=== PATIENT | female | born 1980 | race Caucasian/White ===

== ENCOUNTER 2020-11-27 17:58 | Emergency (ER) | payer MEDICARE, MEDICAID, SELFPAY ==
[2020-11-27 18:00] VITALS: BP 129/87; PULSE 97; RESP 18; TEMP 36.7; O2SAT 96; BMI 32.0
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
[2020-11-27 20:00] VITALS: BP 129/87; PULSE 97; RESP 18; TEMP 36.7; O2SAT 96
[2020-11-27 20:00] LABS: MANUAL DIFF FLAG NO
[2020-11-27 20:17] LABS: Basophils Percent Auto 0.3 % (0-2); Eosinophils Absolute Auto 0.1 X10*3/uL (0.0-0.4); Eosinophils Percent Auto 1.3 % (0-4); Hematocrit 39.2 % (37-47); Hemoglobin 13.3 g/dl (12.0-16.0); Imm Gran Abs Auto 0.03 X10*3/uL (0.00-0.03); Imm Gran Pct Auto 0.3 % (0.0-0.4); Lymphocytes Absolute Auto 3.4 X10*3/uL (1.2-4.9); Mean Corpuscular HGB Conc 33.9 g/dl (31.0-35.0); Mean Corpuscular Hemoglobin 33.5 pg (27.0-33.0); Mean Corpuscular Volume 98.7 fL (80-98); Monocytes Absolute Auto 0.6 X10*3/uL (0.1-1.2); Monocytes Percent Auto 6.2 % (2-11); Neutrophils Percent Auto 58.9 % (45-73); Platelet Count 260 X10*3/uL (160-400); Red Blood Count 3.97 X10*6/uL (4.20-5.50); White Blood Count 10.2 X10*3/uL (4.8-10.8)
[2020-11-27 20:29] LABS: Alanine Aminotransferase 48 U/L (0-31); Albumin Level 3.9 g/dL (3.5-5.0); Alkaline Phosphatase 53 U/L (39-117); Amylase 84 U/L (28-100); Aspartate Amino Transferase 57 U/L (5-31); Bilirubin Direct 0.2 mg/dL (0.0-0.5); Bilirubin Total 0.5 mg/dL (0.0-1.0); Creatinine Clr Calc Pharmacy 112.2; Estimated Glomerular Filt Rate > 60; Total Protein 7.5 g/dL (6.5-8.0)
[2020-11-27 22:00] VITALS: BP 126/85; PULSE 96; RESP 15; O2SAT 97
[2020-11-27 22:11] LABS: Glucose Urine UA NEG (NEG); Leukocyte Esterase Urine TRACE (NEG); Nitrite Urine NEG (NEG); UACC Culture Trigger YES; Urine Blood 3+ (NEG); Urine Ketones 15 MG/DL (NEG); Urine Protein TRACE MG/DL (NEG-TRACE)
[2020-11-27 22:12] LABS: Appearance Urine CLEAR; Color Urine YELLOW
[2020-11-27 22:14] LABS: UPreg QC Valid YES; Urine Pregnancy NEGATIVE (NEGATIVE)
[2020-11-27 22:22] LABS: Bacteria Urine TRACE /LPF; Mucus Urine TRACE /LPF; RBC Urine 30-49 /HPF (0); Squamous Epithelial Cell Urine 2+ /LPF
--- NOTE | 2020-11-27 22:22 | PC.NURSE ---
Patient refused to have the internal exam. There were no area of trauma or bruising. Patient urine sent for urinalysis. Per HEAD MILLER patient has a probable yeast infection and possible uti
[2020-11-27] MEDS: Fluconazole 150 MG TABLET PO (22:49)
[2020-11-27] MEDS: levoFLOXacin 500 MG TABLET PO (22:49)
[2020-11-28 03:21] LABS: HBS Num1 0.07 mIU/mL (0-7.99); ~Hepatitis B Surface Antibody NONREACTIVE (Nonreactive)
[2020-11-28 03:30] LABS: HIV AB/AG Nonreactive (Nonreactive); HIV Num 1 0.16 S/CO (0.00-0.99); ~HepC Num1 0.18 S/CO (0.00-0.79); ~Hepatitis C Antibody Nonreactive (Nonreactive)
[2020-11-28 03:34] LABS: HBc Num1 0.09 S/CO (0.00-0.79); HBsAGNum1 0.15 S/CO (0.00-0.99); Hepatitis B Core Antibody Nonreactive (Nonreactive); Hepatitis B Surface Antigen Negative (Negative)
[2020-11-28 04:50] LABS: CT PCR NOT DETECTED (Not Detect.); NG PCR NOT DETECTED (Not Detect.)
== END 2020-11-27 22:44 | disposition home or self-care (01) ==
PROVIDERS: Nurse Practitioner Family; Emergency Provider Internal Medicine; PCP Internal Medicine
DX: T76.21XA Adult sexual abuse, suspected, initial encounter (principal); B37.49 Other urogenital candidiasis; N30.01 Acute cystitis with hematuria
CPT/HCPCS: 36415; 80076; 81001; 81003; 81025; 82150; 82565; 85025; 86704; 86706; 86803; 87086; 87147; 87340; 87389; 87491; 87591; 99284; 99285

== ENCOUNTER 2020-12-30 18:45 | Emergency (ER) | payer MEDICARE, MEDICAID, SELFPAY ==
--- NOTE | ~2020-12-30 | XR_ITS ---
EXAMINATION: XR ANKLE, RIGHT XR ANKLE, LEFT XR FOOT, RIGHT XR FOOT, LEFT CLINICAL INFORMATION: Pain and swelling COMPARISON: None TECHNIQUE: 2 views of each ankle. 3 views of each foot. FINDINGS: Right foot/ankle: There is a screw within the first digit fusing the proximal and distal phalanges. There is solid bony fusion. Flexion of the second through fifth digits limits evaluation. Joint space narrowing throughout the metatarsophalangeal joints. Osteopenia. No acute fracture or malalignment. No ankle joint effusion. Small plantar heel spur. The ankle mortise is congruent. Circumferential soft tissue swelling which is greatest at the ankle laterally. Left foot/ankle: There is a radiopaque screw in the first digit transfixing the proximal and distal phalanges with solid bony fusion across the interphalangeal joint. Hallux valgus. Flexion of the second through fifth digits limits evaluation. No acute fractures seen. No dislocation. Joint space narrowing throughout the metatarsophalangeal joints. Osteopenia. Small plantar heel spur. No ankle joint effusion. Circumferential soft tissue swelling at the ankle, greatest laterally. The ankle mortise is congruent. XR/XR foot RT 2V IMPRESSION: No acute abnormality of either ankle or foot. Prominent soft tissue swelling, greatest at the lateral ankles. Significant osteopenia.
--- NOTE | ~2020-12-30 | XR_ITS ---
EXAMINATION: XR ANKLE, RIGHT XR ANKLE, LEFT XR FOOT, RIGHT XR FOOT, LEFT CLINICAL INFORMATION: Pain and swelling COMPARISON: None TECHNIQUE: 2 views of each ankle. 3 views of each foot. FINDINGS: Right foot/ankle: There is a screw within the first digit fusing the proximal and distal phalanges. There is solid bony fusion. Flexion of the second through fifth digits limits evaluation. Joint space narrowing throughout the metatarsophalangeal joints. Osteopenia. No acute fracture or malalignment. No ankle joint effusion. Small plantar heel spur. The ankle mortise is congruent. Circumferential soft tissue swelling which is greatest at the ankle laterally. Left foot/ankle: There is a radiopaque screw in the first digit transfixing the proximal and distal phalanges with solid bony fusion across the interphalangeal joint. Hallux valgus. Flexion of the second through fifth digits limits evaluation. No acute fractures seen. No dislocation. Joint space narrowing throughout the metatarsophalangeal joints. Osteopenia. Small plantar heel spur. No ankle joint effusion. Circumferential soft tissue swelling at the ankle, greatest laterally. The ankle mortise is congruent. XR/XR ankle LT min 3V IMPRESSION: No acute abnormality of either ankle or foot. Prominent soft tissue swelling, greatest at the lateral ankles. Significant osteopenia.
--- NOTE | ~2020-12-30 | XR_ITS ---
EXAMINATION: XR ANKLE, RIGHT XR ANKLE, LEFT XR FOOT, RIGHT XR FOOT, LEFT CLINICAL INFORMATION: Pain and swelling COMPARISON: None TECHNIQUE: 2 views of each ankle. 3 views of each foot. FINDINGS: Right foot/ankle: There is a screw within the first digit fusing the proximal and distal phalanges. There is solid bony fusion. Flexion of the second through fifth digits limits evaluation. Joint space narrowing throughout the metatarsophalangeal joints. Osteopenia. No acute fracture or malalignment. No ankle joint effusion. Small plantar heel spur. The ankle mortise is congruent. Circumferential soft tissue swelling which is greatest at the ankle laterally. Left foot/ankle: There is a radiopaque screw in the first digit transfixing the proximal and distal phalanges with solid bony fusion across the interphalangeal joint. Hallux valgus. Flexion of the second through fifth digits limits evaluation. No acute fractures seen. No dislocation. Joint space narrowing throughout the metatarsophalangeal joints. Osteopenia. Small plantar heel spur. No ankle joint effusion. Circumferential soft tissue swelling at the ankle, greatest laterally. The ankle mortise is congruent. XR/XR ankle RT min 3V IMPRESSION: No acute abnormality of either ankle or foot. Prominent soft tissue swelling, greatest at the lateral ankles. Significant osteopenia.
--- NOTE | ~2020-12-30 | XR_ITS ---
EXAMINATION: XR ANKLE, RIGHT XR ANKLE, LEFT XR FOOT, RIGHT XR FOOT, LEFT CLINICAL INFORMATION: Pain and swelling COMPARISON: None TECHNIQUE: 2 views of each ankle. 3 views of each foot. FINDINGS: Right foot/ankle: There is a screw within the first digit fusing the proximal and distal phalanges. There is solid bony fusion. Flexion of the second through fifth digits limits evaluation. Joint space narrowing throughout the metatarsophalangeal joints. Osteopenia. No acute fracture or malalignment. No ankle joint effusion. Small plantar heel spur. The ankle mortise is congruent. Circumferential soft tissue swelling which is greatest at the ankle laterally. Left foot/ankle: There is a radiopaque screw in the first digit transfixing the proximal and distal phalanges with solid bony fusion across the interphalangeal joint. Hallux valgus. Flexion of the second through fifth digits limits evaluation. No acute fractures seen. No dislocation. Joint space narrowing throughout the metatarsophalangeal joints. Osteopenia. Small plantar heel spur. No ankle joint effusion. Circumferential soft tissue swelling at the ankle, greatest laterally. The ankle mortise is congruent. XR/XR foot LT 2V IMPRESSION: No acute abnormality of either ankle or foot. Prominent soft tissue swelling, greatest at the lateral ankles. Significant osteopenia.
[2020-12-30 19:58] VITALS: BP 139/88; PULSE 93; RESP 18; TEMP 37; O2SAT 97; BMI 31.5
[2020-12-30 22:09] VITALS: BP 151/91; PULSE 90; O2SAT 100
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
[2020-12-30] MEDS: Acetaminophen 325 MG TABLET 975 MG PO (23:18)
== END 2020-12-31 00:53 | disposition other institution (70) ==
PROVIDERS: Emergency Provider Student in an Organized Health Care Education/Training Program
DX: M79.672 Pain in left foot (principal); M79.671 Pain in right foot
CPT/HCPCS: 73610; 73620; 99283; 99284

== ENCOUNTER 2021-02-07 09:22 | Outpatient (REF) | payer MEDICARE, MEDICAID, SELFPAY ==
[2021-02-07 10:09] LABS: MANUAL DIFF FLAG NO
[2021-02-07 10:41] LABS: Basophils Percent Auto 0.3 % (0-2); Eosinophils Absolute Auto 0.2 X10*3/uL (0.0-0.4); Eosinophils Percent Auto 1.5 % (0-4); Hematocrit 43.5 % (37-47); Hemoglobin 14.1 g/dl (12.0-16.0); Imm Gran Abs Auto 0.03 X10*3/uL (0.00-0.03); Imm Gran Pct Auto 0.3 % (0.0-0.4); Lymphocytes Absolute Auto 2.3 X10*3/uL (1.2-4.9); Lymphocytes Percent Auto 23.8 % (20-40); Mean Corpuscular HGB Conc 32.4 g/dl (31.0-35.0); Mean Corpuscular Hemoglobin 32.2 pg (27.0-33.0); Mean Corpuscular Volume 99.3 fL (80-98); Mean Platelet Volume 9.3 fL (9.4-12.3); Monocytes Absolute Auto 0.5 X10*3/uL (0.1-1.2); Neutrophils Absolute Auto 6.7 X10*3/uL (2.0-8.3); Neutrophils Percent Auto 69.1 % (45-73); Platelet Count 352 X10*3/uL (160-400); Red Blood Count 4.38 X10*6/uL (4.20-5.50); Red Cell Distribution Width 11.8 % (11.0-16.0); White Blood Count 9.7 X10*3/uL (4.8-10.8)
[2021-02-07 10:42] LABS: Valproate 32.5 mcg/mL (50.0-100.0)
[2021-02-07 10:44] LABS: Alanine Aminotransferase 36 U/L (0-31); Albumin Level 4.2 g/dL (3.5-5.0); Alkaline Phosphatase 59 U/L (39-117); Anion Gap 13 (12-20); Aspartate Amino Transferase 42 U/L (5-31); Bilirubin Total 0.4 mg/dL (0.0-1.0); Blood Urea Nitrogen 16 mg/dL (9-16); Calcium 9.3 mg/dL (8.4-10.2); Carbon Dioxide 26 mmol/L (22-29); Chloride 105 mmol/L (96-108); Estimated Glomerular Filt Rate > 60; Glucose Random 89 mg/dL (60-115); Potassium 4.2 mmol/L (3.3-5.1); Sodium 140 mmol/L (135-145); Total Protein 8.1 g/dL (6.5-8.0)
== END 2021-02-07 09:23 | disposition home or self-care (01) ==
LOC: HO.LAB 09:22
PROVIDERS: Visit Provider Clinical Nurse Specialist Psychiatric/Mental Health, Adult
DX: F34.81 Disruptive mood dysregulation disorder (principal)
CPT/HCPCS: 36415; 80053; 80164; 85025

== ENCOUNTER 2021-06-10 10:56 | Outpatient (REF) | payer MEDICARE, MEDICAID, SELFPAY ==
[2021-06-10 11:21] LABS: MANUAL DIFF FLAG NO
[2021-06-10 11:39] LABS: Basophils Percent Auto 0.3 % (0-2); Eosinophils Absolute Auto 0.1 X10*3/uL (0.0-0.4); Eosinophils Percent Auto 1.1 % (0-4); Hematocrit 39.4 % (37.0-47.0); Hemoglobin 13.3 g/dl (12.0-16.0); Imm Gran Abs Auto 0.02 X10*3/uL (0.00-0.03); Imm Gran Pct Auto 0.3 % (0.0-0.4); Mean Corpuscular HGB Conc 33.8 g/dl (31.0-35.0); Mean Corpuscular Hemoglobin 32.5 pg (27.0-33.0); Mean Corpuscular Volume 96.3 fL (80.0-98.0); Mean Platelet Volume 8.5 fL (9.4-12.3); Monocytes Absolute Auto 0.5 X10*3/uL (0.1-1.2); Monocytes Percent Auto 6.4 % (2-11); Neut%MD 65.9 %; Neutrophils Absolute Auto 5.2 x10*3/uL (2.0-8.3); Neutrophils Percent Auto 65.9 % (45-73); Platelet Count 296 X10*3/uL (160-400); Red Blood Count 4.09 X10*6/uL (4.20-5.50); Red Cell Distribution Width 11.7 % (11.0-16.0); WBCANC 7.9 X10*3/uL; White Blood Count 7.9 X10*3/uL (4.8-10.8)
[2021-06-10 12:04] LABS: Anion Gap 13 (12-20); Blood Urea Nitrogen 16 mg/dL (9-16); Calcium 9.7 mg/dL (8.4-10.2); Carbon Dioxide 26 mmol/L (22-29); Chloride 104 mmol/L (96-108); Estimated Glomerular Filt Rate > 60; Glucose Random 79 mg/dL (60-115); Potassium 4.5 mmol/L (3.3-5.1); Sodium 138 mmol/L (135-145)
[2021-06-10 12:31] LABS: Valproate < 2.0 mcg/mL (50.0-100.0)
== END 2021-06-10 10:57 | disposition home or self-care (01) ==
LOC: HO.LAB 10:56
PROVIDERS: Visit Provider Clinical Nurse Specialist Psychiatric/Mental Health, Adult
DX: F34.81 Disruptive mood dysregulation disorder (principal); Z79.899 Other long term (current) drug therapy
CPT/HCPCS: 36415; 80048; 80164; 85025

== ENCOUNTER 2021-07-26 21:18 | Emergency (ER) | payer MEDICARE, MEDICAID, SELFPAY ==
[2021-07-26 22:06] VITALS: BP 154/94; PULSE 95; RESP 16; TEMP 37.4; O2SAT 97; BMI 31.5
--- NOTE | 2021-07-26 23:07 | ECG_ITS ---
Test Reason : MEDICATION ERROR Blood Pressure : / mmHG Vent. Rate : 100 BPM Atrial Rate : 100 BPM P-R Int : 176 ms QRS Dur : 066 ms QT Int : 326 ms P-R-T Axes : 028 012 015 degrees QTc Int : 420 ms Normal sinus rhythm Normal ECG No previous ECGs available Referred By: Bhavya Knapp Electronically Signed By:FEI PANDA
--- NOTE | 2021-07-27 01:36 | ED.GENADULT ---
HPI - General Adult General Chief complaint: General Medical Stated complaint: Took someone elses meds @ 830pm Time Seen by Provider: 07/26/21 23:07 Source: patient and other (correction staff) Mode of arrival: ambulatory Limitations: no limitations History of Present Illness HPI narrative: 7 hours ago, patient was given accidentally the wrong medication. Patient ingested atorvastatin, Lamictal, Prozac. Patient is on most of this medications except Lamictal. Patient has not had any symptoms. Patient has been feeling well. Patient denies abdominal pain, nausea or vomiting, no rash, no allergic reaction. Patient feels at baseline, according to the skilled nursing staff, patient is at baseline Related Data Home Medications Medication Instructions Recorded Confirmed aripiprazole 30 mg tablet 30 mg PO BEDTIME 08/20/20 atorvastatin 20 mg tablet 20 mg PO DAILY 08/20/20 clonazepam 1 mg tablet 1 mg PO BID PRN 08/20/20 divalproex 250 mg tablet,extended 250 mg PO DAILY 08/20/20 release 24 hr divalproex 500 mg tablet,extended 500 mg PO DAILY 08/20/20 release 24 hr fluoxetine 20 mg capsule 60 mg PO QAM 08/20/20 ketoconazole 2 % shampoo 1 appl TOPICAL 2XW 08/20/20 levonorgestrel 0.15 mg-ethinyl PO 08/20/20 estradiol 30 mcg tablets,3 mos pack(91) methenamine hippurate 1 gram tablet 1 g PO BID 08/20/20 metronidazole 0.75 % topical cream 1 appl TOPICAL BID 08/20/20 nystatin 100,000 unit/gram topical TOPICAL 08/20/20 powder trazodone 50 mg tablet 50 mg PO BEDTIME 08/20/20 triamcinolone acetonide 0.1 % appl TOPICAL BID 08/20/20 topical cream Previous Rx's Medication Instructions Recorded ibuprofen 600 mg tablet 600 mg PO Q8H PRN #20 tab 08/20/20 fluconazole 150 mg tablet 150 mg PO ONCE #1 tab 11/27/20 (Diflucan) levofloxacin 500 mg tablet 500 mg PO DAILY #6 tab 11/27/20 Allergies Allergy/AdvReac Type Severity Reaction Status Date / Time No Known Allergies Allergy Verified 12/30/20 19:57 [No Known Allergies*] Review of Systems Review of Systems: Constitutional : No Weight loss, No Fever, No Chills, No Night Sweats, No Fatigue, No Malaise ENT/Mouth : No Hearing loss, No Ear Pain, No Nasal Congestion, No Sinus Pain, No Hoarseness, No sore throat, No Rhinorrhea, No Swallowing Difficulty Eyes: No Eye Pain, No Swelling, No Redness, No Foreign Body, No Discharge, No Vision Changes Cardiovascular : No Chest Pain, No SOB, No Dyspnea on Exertion, No Orthopnea, No Edema, No Palpitations Respiratory : No Cough, No Sputum, No Wheezing, No Smoke Exposure, No Dyspnea Gastrointestinal : No Nausea, No Vomiting, No Diarrhea, No Constipation, No abdominal Pain, No Hematochezia, No Melena Genitourinary : no irregular bleeding, No Dysuria, No Urinary Frequency, No Hematuria, No Urinary Incontinence, No Urgency, No Flank Pain, No Urinary Flow Changes, No Hesitancy Musculoskeletal : No joint pain, No Myalgias, No Joint Swelling Skin : No Skin Lesions, No rash Neuro : No Weakness, No Numbness, No Paresthesias, No Loss of Consciousness, No Dizziness, No Headache Psych : No Anxiety/Panic, No Depression, No SI/HI/AH/VH, No Social Issues, Heme/Lymph: No Bruising, No Bleeding,No Lymphadenopathy Endocrine : No Polyuria, No Polydipsia, No Temperature Intolerance PMFSH Past Medical History Medical History Anxiety Depression Hyperlipidemia Psoriasis Seizure Social History Social History Alcohol intake: never Patient Tobacco Use Status: Never used Tobacco Advance Directives: No Advance Directives Information Provided: Yes Physical Exam ED Vital Signs: Vital Signs - 24 hr 07/26/21 22:06 Temperature 99.4 F Pulse Rate 95 Respiratory Rate 16 Blood Pressure 154/94 H Pulse Oximetry 97 BMI result Body Mass Index 31.5 Const Other: Appearance: Alert. Oriented X3. No acute distress. Eyes: Pupils equal, round and reactive to light. ENT: Pharynx normal. Neck: Normal inspection. Neck supple. No lymph nodes noted. No crepitus CVS: Normal heart rate and rhythm. Pulses normal. Normal S1 and S2 Respiratory: No respiratory distress. Breath sounds normal. No Wheezing. No rales Abdomen: Soft and nontender. No rigidity. No distention. Skin: Skin warm and dry. Normal skin color. Normal skin turgor. Extremities: No lower extremity edema. No Lacerations. No Rash Neuro: Oriented X 3. No motor deficit. No sensory deficit. Moving all extremities. No slurred speech. CN 2 through 12 grossly intact Psych: calm, cooperative, normal affect Course Course Course Narrative: I discussed with the patient and the skilled nursing staff, that at this time, no further intervention is needed, patient ingested the medication over 7 hours ago and patient is asymptomatic. PE within normal limits, no acute findings. Patient will be discharged home Medical Decision Making ECG Data Attestation: I personally reviewed and interpreted this ECG as follows: (Senna rhythm, heart rate 100, and a segment depression elevation, no T-wave inversion, QTC 420) Discharge Plan Discharge Clinical Impression: Accidental drug ingestion Patient Disposition: Home, Self-Care Instructions: Medication Safety for Older Adults (ED) Additional Instructions: Please follow-up with your primary care physician tomorrow. If you have any worsening or new symptoms, please return to the emergency room or call 911 Prescriptions: No Action levofloxacin 500 mg tablet 500 mg PO DAILY Qty: 6 0RF fluconazole [Diflucan] 150 mg tablet 150 mg PO ONCE Qty: 1 0RF Rx Instructions: Give 1 tablet on 11/30/2020. Then discontinue this medication divalproex 250 mg tablet extended release 24 hr 250 mg PO DAILY 0RF aripiprazole 30 mg tablet 30 mg PO BEDTIME 0RF fluoxetine 20 mg capsule 60 mg PO QAM 0RF divalproex 500 mg tablet extended release 24 hr 500 mg PO DAILY 0RF methenamine hippurate 1 gram tablet 1 g PO BID 0RF clonazepam 1 mg tablet 1 mg PO BID PRN0RF trazodone 50 mg tablet 50 mg PO BEDTIME 0RF atorvastatin 20 mg tablet 20 mg PO DAILY 0RF triamcinolone acetonide 0.1 % cream topical BID 0RF levonorgestrel-ethinyl estrad 0.15 mg-30 mcg (91) tablets,dose pack,3 month PO 0RF metronidazole 0.75 % cream 1 appl topical BID 0RF ketoconazole 2 % shampoo 1 appl topical 2XW 0RF nystatin 100,000 unit/gram powder topical 0RF ibuprofen 600 mg tablet 600 mg PO Q8H PRN (Reason: pain) Qty: 20 0RF
== END 2021-07-27 01:51 | disposition home or self-care (01) ==
PROVIDERS: Emergency Provider Emergency Medicine
DX: T50.911A Poisoning by multiple unspecified drugs, medicaments and biological substances, accidental (unintentional), initial encounter (principal); T42.6X5A Adverse effect of other antiepileptic and sedative-hypnotic drugs, initial encounter; Y92.9 Unspecified place or not applicable; Z79.899 Other long term (current) drug therapy
CPT/HCPCS: 93005; 99283

== ENCOUNTER 2021-11-03 16:55 | Emergency (ER) | payer MEDICARE, MEDICAID, SELFPAY ==
--- NOTE | ~2021-11-03 | CT_ITS ---
EXAMINATION: CT HEAD WITHOUT CONTRAST CLINICAL INFORMATION: Subacute changes and aggression. COMPARISON: None TECHNIQUE: Contiguous axial imaging was performed from the skull base to vertex without intravenous administration of contrast. This CT examination was performed using dose optimization techniques as appropriate, variously including the following: *Automated exposure control *Adjustment of mA and/or kV according to patient size (this includes techniques or standardized protocols for targeted exams where dose is matched to indication/reason for exam; i.e. extremities or head) *Use of iterative reconstruction technique DLP: 581 mGy-cm FINDINGS: There is no evidence of acute intracranial hemorrhage or territorial infarction. No abnormal mass effect or midline shift is seen. Koroma to white matter differentiation is well preserved. No extra-axial fluid collections are identified. The frontal horns of lateral ventricles are normal size. There is a enlarged ELINA and the atrium of lateral ventricle. 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 There is no abnormal attenuation within the brain parenchyma. The osseous structures and soft tissues are normal. The mastoid air cells and visualized portions of the paranasal sinuses are well aerated. CT/CT head/brain wo con IMPRESSION: No acute intracranial process seen. 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
[2021-11-03 17:29] VITALS: BP 124/80; BP 92/67; PULSE 76; PULSE 81; RESP 18; TEMP 36.4; O2SAT 100; O2SAT 98; BMI 30.2
--- NOTE | 2021-11-03 17:42 | PC.NURSE ---
PATIENT REFUSED TO BE BAR STEWARD INTO HOSPITAL ATTIRE ,RN AWARE .
--- NOTE | 2021-11-03 19:33 | ED_ITS ---
HPI - General Adult General Chief complaint: General Medical Stated complaint: Section 12 Time Seen by Provider: 11/03/21 17:09 Source: patient and EMS Mode of arrival: EMS History of Present Illness HPI narrative: 41-year-old female brought in by EMS from her care facility due to reports of increased aggression and at that time was Section 12 and brought in by EMS. Patient is otherwise calm and cooperative denies any suicidal ideation and denies wanting to hurt anyone and instead states that the staff was threatening me . Patient states that she has significant toe pain. Related Data Home Medications Medication Instructions Recorded Confirmed aripiprazole 20 mg tablet 1 tab PO QAM 11/03/21 11/03/21 clonazepam 0.5 mg tablet 1 tab PO BID PRN Anxiety 11/03/21 11/03/21 divalproex 500 mg tablet,extended 2 tab PO BEDTIME 11/03/21 11/03/21 release 24 hr fluoxetine 20 mg capsule 3 cap PO QAM 11/03/21 11/03/21 propranolol 20 mg tablet 1 tab PO BID 11/03/21 11/03/21 risperidone 1 mg tablet (Risperdal) 1 tab PO BID 11/03/21 11/03/21 trazodone 100 mg tablet 1 tab PO BEDTIME 11/03/21 11/03/21 Previous Rx's Medication Instructions Recorded cephalexin 500 mg capsule 500 mg PO Q12H 3 days #6 caps 11/03/21 Allergies Allergy/AdvReac Type Severity Reaction Status Date / Time No Known Allergies Allergy Verified 12/30/20 19:57 [No Known Allergies*] Review of Systems Review of Systems: Pertinent positives and negatives as stated in HPI 10 point review of systems is otherwise negative. [facility] Past Medical History Source: nursing notes reviewed Medical History Anxiety Depression Hyperlipidemia Psoriasis Seizure Social History Social History Alcohol intake: never Patient Tobacco Use Status: Never used Tobacco Advance Directives: No Advance Directives Information Provided: No Physical Exam ED Vital Signs: Vital Signs - 24 hr 11/03/21 17:29 Temperature 97.5 F Pulse Rate 76 Respiratory Rate 18 Blood Pressure 92/67 Pulse Oximetry 100 Oxygen Delivery Method Room Air BMI result Body Mass Index 30.2 VITAL SIGNS: Reviewed. GENERAL: Well developed, well nourished, in no acute distress. HEAD: Normocephalic/atraumatic EYES: PERRLA, EOMI EARS: Ext canals without abnormality OROPHARYNX: no oral lesions noted, posterior pharynx clear LUNGS: Normal breath sounds. No adventitious sounds or accessory muscle use. SpO2<100> CARDIOVASCULAR: Regular rate and rhythm without noted murmurs ABDOMEN: Soft, non-tender, non-distended with bowel sounds. MUSCULOSKELETAL: No tenderness, deformities, or effusions noted on gross inspection. EXTREMITIES: No cyanosis, clubbing or mc; obvious corn with surrounding erythema noted to the malformed toe on the left foot. SKIN: Inspection of the skin reveals no rashes NEUROLOGIC: Alert and oriented x 3. Strength and sensation to light touch were grossly intact x 4, cranial nerves 2-12 are grossly intact. Course Course Course Narrative: 41-year-old female with history and clinical presentation inconsistent with suicidal or homicidal ideation instead complaints significantly regarding the toe on her left foot which is somewhat malformed in clearly rubs on shoes with covered toes. Patient will be screened for corroboration by the care team and otherwise can be discharged home in stable condition with a short course of antibiotics, soaks in warm water and restricted to open toe/ flip flops that do not rub the top of patient's toes. 2005: I spoke with Serenity, from the care team, who obtained collateral information and patient is had some pretty significant behavioral changes over the past month, Aggression, has been noted to be defecating on herself and it is unclear the reason for this. Patient will be held at this time and further evaluated by the behavioral team. Reevaluation(s) Reevaluation #1: Patient placed in physician observation because the patient needed more time for lab work and behavioral evaluation. At the time observation was started the patient's vital signs were stable, patient is alert and oriented, neuro: Nonfocal, CV RRR, lungs clear Time: 20:34 Discharge Plan Discharge Clinical Impression: Mcgregor or callus, Aggressive behavior Patient Disposition: Still a Patient Prescriptions: New cephalexin 500 mg capsule 500 mg PO Q12H 3 Days Qty: 6 0RF No Action clonazepam 0.5 mg tablet 1 tab PO BID PRN (Reason: Anxiety) trazodone 100 mg tablet 1 tab PO BEDTIME divalproex 500 mg tablet extended release 24 hr 2 tab PO BEDTIME propranolol 20 mg tablet 1 tab PO BID fluoxetine 20 mg capsule 3 cap PO QAM risperidone [Risperdal] 1 mg tablet 1 tab PO BID aripiprazole 20 mg tablet 1 tab PO QAM
[2021-11-03] MEDS: cephALEXin 500 MG CAPSULE PO (19:48)
[2021-11-03] MEDS: Acetaminophen 325 MG TABLET 975 MG PO (19:48)
--- NOTE | 2021-11-03 20:07 | MHC.CARE ---
RISK ASSESSMENT: CARE team consult received for 41 year old female with significant developmental disability who was transported via ambulance from her [facility] retirement for increased agitation and aggression toward staff and other residents in the program. Pt refused to change into hospital attire once she arrived to the emergency department but has otherwise been calm and cooperative. This property underwriter communicated with the pt's ict programmer Mya Herrera ([phone]) who shared that the pt is a [facility] resident of the program and had minimal behavioral problems prior to February 2021 when the pt began to escalate while at her day program and engaging in head banging and threatening staff and other participants. The pt was discharged from the day program and after several days of being home during the day these behaviors surfaced in that environment as well. She has been increasingly verbally and physically aggressive and threatening toward staff and her peers in the retirement, yelling obscenities for hours on end, defacating herself and telling staff to clean up her shit, and has needed to be transported to the emergency department at [facility] several times due to her level of dysregulation and unsafe behavior. Mya shared that the pt's family expressed their concerns after several instances where they have heard her on the phone during one of these episodes, which have been occurring on a daily basis for the past week or so. Pt's sister questioned whether it could be early onset of menopause, as their mother experienced early menopause and was similarly agitated and dysregulated during this period of time. Mya reported that one of the responding [place] police officers recommended sending the pt to [facility] instead of [facility] in hopes that a more detailed and thorough evaluation may occur, feeling that [facility] may not be seeing the whole picture with regards to the pt's behaviors and being a risk for harm to others. Recommendation is for a full crisis evaluation. Pt will be referred to [facility]. ED physician and nurse aware of the plan of care.
--- NOTE | 2021-11-03 20:14 | PC.NURSE ---
No report on patient's ambulation status available. [facility] called @ [phone]/spoke with Mya who reported that patient can ambulates independently without using assisted device, patient is delayed but coherent, compliant with exchange specialist process at this time, will continue to monitor.
--- NOTE | 2021-11-03 20:45 | PC.NURSE ---
[facility] referral completed for increased aggression, confirmed, pending ETA, halfway director called again and left voice mail to have fax medication list or MAR, patient is currently in room watching TV, will continue to monitor.
[2021-11-03 21:17] LABS: COVID-19 Test Negative (Negative)
[2021-11-03 21:25] LABS: Basophils Percent Auto 0.6 % (0-2); Eosinophils Absolute Auto 0.1 X10*3/uL (0.0-0.4); Eosinophils Percent Auto 2.2 % (0-4); Hematocrit 38.6 % (37.0-47.0); Hemoglobin 13.3 g/dl (12.0-16.0); Imm Gran Abs Auto 0.08 X10*3/uL (0.00-0.03); Imm Gran Pct Auto 1.3 % (0.0-0.4); Lymphocytes Absolute Auto 2.1 X10*3/uL (1.2-4.9); Lymphocytes Percent Auto 33.3 % (20-40); MANUAL DIFF FLAG SCAN; Mean Corpuscular HGB Conc 34.5 g/dl (31.0-35.0); Mean Corpuscular Hemoglobin 33.1 pg (27.0-33.0); Mean Platelet Volume 9.6 fL (9.4-12.3); Monocytes Absolute Auto 0.5 X10*3/uL (0.1-1.2); Monocytes Percent Auto 7.4 % (2-11); Neutrophils Absolute Auto 3.5 x10*3/uL (2.0-8.3); Neutrophils Percent Auto 55.2 % (45-73); PLT CLUMP 1; Red Blood Count 4.02 X10*6/uL (4.20-5.50); Red Cell Distribution Width 12.5 % (11.0-16.0); SCAN SMEAR FLAG 1
[2021-11-03 21:26] LABS: White Blood Count 6.3 X10*3/uL (4.8-10.8)
--- NOTE | 2021-11-03 21:36 | PC.NURSE ---
I INFORM MD WASHINGTON THAT PATIENT REFUSED WELL DRILLER , STATED PATIENT DOES NOT HAVE TO BE WELL DRILLER SINCE PATIENT WAS NOT SI OR HI, PATIENT WAS GIVEN DINNER BY THIS PCT ,PCT LUIS WAS SITTING AT PATIENT BEDSIDE .
[2021-11-03 21:39] LABS: Alanine Aminotransferase 25 U/L (0-31); Albumin Level 3.8 g/dL (3.5-5.0); Alkaline Phosphatase 63 U/L (39-117); Anion Gap 13 (12-20); Aspartate Amino Transferase 42 U/L (5-31); Bilirubin Total 0.4 mg/dL (0.0-1.0); Blood Urea Nitrogen 18 mg/dL (9-16); Calcium 8.6 mg/dL (8.4-10.2); Carbon Dioxide 21 mmol/L (22-29); Chloride 108 mmol/L (96-108); Creatinine Clr Calc Pharmacy 91.3; Estimated Glomerular Filt Rate > 60; Glucose Random 150 mg/dL (60-115); Potassium 4.4 mmol/L (3.3-5.1); Sodium 138 mmol/L (135-145); Total Protein 7.4 g/dL (6.5-8.0)
[2021-11-03 21:43] LABS: Valproate 50.2 mcg/mL (50.0-100.0)
[2021-11-03 21:50] LABS: SLIDE REVIEW VERIFIED
[2021-11-04 01:27] VITALS: BP 116/72; PULSE 80; RESP 16; TEMP 36.8; O2SAT 99
--- NOTE | 2021-11-04 06:26 | PC.NURSE ---
Patient slept through the night, no distress observed/reported, patient had one episode of bladder incontinence, incontinence care provided, well engaged with [facility] clinician during evaluation, disposition is section 12 inpatient bed search, patient gait slow but steady, VSS, will continue to monitor.
--- NOTE | 2021-11-04 08:47 | MHC.MBSS ---
pt received in bed, sleeping. no concerning behaviors. will continue to monitor
--- NOTE | 2021-11-04 10:34 | PC.NURSE ---
pt awake and walking to BR with accompaniment. AM care made available. Disposition pending. Will continue to monitor.
--- NOTE | 2021-11-04 10:41 | MHC.CARE ---
Spoke to patient in [facility] this morning to discuss discharge plan, she understands that her prescriptions are ready at the pharmacy. Patient stated that she has been struggling to contact her new psychiatrist and is upset that he did not prescribe extended release Adderall which she has taken for about 20 years. She explained that the sharpe of medication makes her anxious and has to repeat this with each dose. Unfortunately this is not something that can be addressed in the ED, which she understood. A phone and # for her provider, she did reach out. Patient calling her mother for a ride. ED provider updated
--- NOTE | 2021-11-04 11:00 | P.CNPS_ITS ---
History of Present Illness Date of Service: 11/04/2021 Chief Complaint: Section 12 Reason for Consult: increase aggression Requesting physician: Sangita Mendiola Discussed with referring provider: Yes Sources of Information: patient interviewed, chart reviewed and crisis/core team assessment reviewed HPI Narrative: Ms. Puentes is a 41 year-old woman with hx of cerebral palsy, intellectual disability, explosive behaviors who resides at [facility]. She was brought via EMS from senior living due to increase aggression towards peers and staff at the senior living. Per [facility] records, pt was admitted to inpatient psych unit in 07/2021 and 09/2021. Utox was negative. Collateral information obtained from her outpatient psychotherapist, Linnette who has known Dayami for about 7years. Linnette reports Dayami had not had any signs of aggression towards self or others in last 5 years and even in the past these were brief episodes and Dayami was easily redirectable. Linnette reports mild explosive behaviors started sometime last year but have significantly worsened in the past 2 months. Linnette reports that Dayami usually starts with verbal aggression towards staff then proceed to hit or punch others. A new behavior has been head banging. Dayami has had 2 inpatient admission back in 07/2021 and last one 09/2021 at [facility]. Linnette reports that Dayami had about one good day after discharge from [facility] but has continued to show aggression towards self and others for about one month. Linnette reports staff at senior living where Dayami has resided since 2014 have been trying to deescalate episodes of aggression to no avail. Collateral information was also gathered from her outpatient psychiatric prescriber, Jose Luis Rooney , who reports paul has been for several years stable on combination of abilify, depakote, prozac. Depakote was briefly decrease due to bilat tremors, then it was brought back up as aggression worsened. Since then, in July propanolol was started, clonazepam had been started and then decrease in last admission at [facility]. Last week, prescriber started switch from abilify to risperidone for aggression. No hx of psychosis. In the ED, Dayami presents as friendly. She reports she is not sad any more and would like to return to senior living as she misses the staff there. She denies SI/HI. No signs of psychosis. No insight as to concerns in terms of aggression and explosive behaviors. Past Psychiatric History: Inpatient: [facility] 07/30-08/04/2021, [facility] 09/18/2021-10/06/2021 OP: [facility] Juana Rooney [phone]; clinician Linnette Pedersen [phone] Legal Guardian: Alison Gonzalez [phone] Brother- Gene Puentes [phone] Past medication trials: prozac, propanolol, clonazepam, depakote, abilify, trazodone Medical Evaluation Reviewed: Yes Review of Systems Review of Systems Yes all other systems are reviewed and are negative Cardiovascular: Denies chest pain, Denies rapid heart rate, Denies dyspnea and Denies dyspnea on exertion Respiratory: Denies chest congestion, Denies dyspnea and Denies dyspnea on exertion Comments: left toe pain. [facility] Medical History Anxiety Depression Hyperlipidemia Psoriasis Seizure Family History: unknown Social History: Lives mostly with parents until their passing, then lived briefly with brother and his , in 2014 went to senior living through [facility]. No children. Not . Substance History: none Trauma History: unknown Diagnostics Vital Signs (24Hr): Vital Signs - 24 hr 11/03/21 17:29 11/04/21 01:27 Temperature 97.5 F 98.2 F Pulse Rate 76 80 Respiratory Rate 18 16 Blood Pressure 92/67 116/72 Pulse Oximetry 100 99 Oxygen Delivery Method Room Air Room Air BMI result Body Mass Index 30.2 Labs Results: 11/03/21 21:08 11/03/21 21:08 Labs: Laboratory Results - last 48 hr 11/03/21 11/03/21 11/03/21 20:56 21:08 21:08 WBC 6.3 RBC 4.02 L Hgb 13.3 Hct 38.6 MCV 96.0 MCH 33.1 H MCHC 34.5 RDW 12.5 Plt Count TNP MPV 9.6 Immature Gran % (Auto) 1.3 H Neut % (Auto) 55.2 Lymph % (Auto) 33.3 [place] % (Auto) 7.4 Eos % (Auto) 2.2 Baso % (Auto) 0.6 Lymph # (Auto) 2.1 [place] # (Auto) 0.5 Eos # (Auto) 0.1 Baso # (Auto) 0.0 Abs Immat Gran (auto) 0.08 H Absolute Neuts (auto) 3.5 Absolute Nucleated RBC 0.000 Nucleated RBC % (auto) 0.0 Smear Tech's Comments VERIFIED Sodium 138 Potassium 4.4 Chloride 108 Carbon Dioxide 21 L Anion Gap 13 BUN 18 H Creatinine 0.68 Estim Creat Clear Calc 91.3 Estimated GFR > 60 Random Glucose 150 H Calcium 8.6 D Total Bilirubin 0.4 AST 42 H ALT 25 Alkaline Phosphatase 63 Total Protein 7.4 Albumin 3.8 Valproic Acid COVID-19 (GOKUL) Negative COVID-19 Clin Com See Note 11/03/21 21:08 WBC RBC Hgb Hct MCV MCH MCHC RDW Plt Count MPV Immature Gran % (Auto) Neut % (Auto) Lymph % (Auto) [place] % (Auto) Eos % (Auto) Baso % (Auto) Lymph # (Auto) [place] # (Auto) Eos # (Auto) Baso # (Auto) Abs Immat Gran (auto) Absolute Neuts (auto) Absolute Nucleated RBC Nucleated RBC % (auto) Smear Tech's Comments Sodium Potassium Chloride Carbon Dioxide Anion Gap BUN Creatinine Estim Creat Clear Calc Estimated GFR Random Glucose Calcium Total Bilirubin AST ALT Alkaline Phosphatase Total Protein Albumin Valproic Acid 50.2 COVID-19 (GOKUL) COVID-19 Clin Com Mental Status Exam Mental Status Exam Narrative: Appearance: poor dentition, right eye involuntary movements, casually groomed, fair hygiene in NAD Behavior:friendly psychomotor: no agitation or retardation noted Speech:mumbles at times, spontaneous Thought process:goal oriented wanting to go back home soon Thought content:no signs of psychosis, mostly just missing home Mood: okay Affect: constricted, congruent SI:none HI:none VH/AH:none Delusions: none Insight/judgment:poor x 2. Memory/cog: alert, not formally tested. Medications Medications Current Medications Pharmacy Consult (Consult Rx Perform Med Rec) 1 each MISCELLANE ONCE PRN PRN Reason: Consult order Allergies Allergies Allergy/AdvReac Type Severity Reaction Status Date / Time No Known Allergies Allergy Verified 12/30/20 19:57 [No Known Allergies*] Assessment & Plan Assessment & Plan (1) Intermittent explosive disorder: Status: Acute Code(s): F63.81 - Intermittent explosive disorder (2) Intellectual disability: Status: Acute Code(s): F79 - Unspecified intellectual disabilities (3) Cerebral palsy: Status: Acute Code(s): G80.9 - Cerebral palsy, unspecified Plan Ms. Puentes is a 41 year-old woman with hx of explosive disorder, intellectual disability, seizures, cerebral palsy who was brought from [facility] senior living were she resides due to increase in aggressive behaviors towards staff, and peers. She has had two inpatient admission this year due to similar presentation back in 07/2021 at [facility] and [facility]. Utox is negative. Discussed with OP provider switch to risperidone for behavioral management which was started outpatient last Tuesday. May consider seroquel as better option for behavioral outbursts, rather than robinson psychosis. Increase propanolol to 20mg po TID for impulsive, explosive behaviors. will continue depakote but eventually may consider switch to different mood stabilizer. Lower dose of clonazepam to 0.5mg po BID- as benzo can increase disinhibition especially in context of developmental delay. Will do head ct for subacute changes in terms of atrophy and microvascular changes if any. PLAN 1. Bed search for [facility] inpatient psych bed. 2. Continue depakote 500mg po BID, check ammonia (although this hasn't been problem in past). 3. increase propanolol from 20mg po BID to 20mg po TID 4. Decrease clonazepam from 0.5mg po daily and 1mg po qhs to 0.5mg po BID 5. Decrease prozac dose to 40mg po daily to avoid more activation from prozac. 6. Increase risperidone 1mg po TID, d/c abilify 7. Obtain collateral information 8. Aftercare planning. 9- additional medical work up- head CT (more so for subacute changes in atrophy and vascular changes), TSH, B12, ammonia level. A1C I spent _25 minutes with the patient and/or on the patient floor today, greater than?50% of which was spent counseling/coordinating care.
[2021-11-04] MEDS: Dicyclomine HCl 10 MG CAPSULE PO (11:41)
[2021-11-04] MEDS: Loperamide HCl 2 MG CAPSULE PO (11:45)
--- NOTE | 2021-11-04 12:30 | PC.NURSE ---
SPOKE WITH MICHELE [phone] FROM [facility], SHE WILL BE FAXING UPDATED MED LIST
[2021-11-04 13:06] VITALS: BP 127/72; PULSE 96; RESP 16; TEMP 36.2; O2SAT 95
[2021-11-04 13:12] LABS: Estimated Average Glucose 91 mg/dL; Hemoglobin A1c % 4.8 %
[2021-11-04 13:20] LABS: Ammonia 27 umol/L (13-55)
[2021-11-04 13:46] LABS: TSH reflex Free T4 1.51 uIU/mL (0.32-4.0)
[2021-11-04 14:09] LABS: Folate > 20.0 ng/mL (> or = 4.0); Vitamin B12 690 pg/mL (200-900)
[2021-11-04 14:26] LABS: Appearance Urine CLOUDY; Color Urine YELLOW; Glucose Urine UA NEG (NEG); Leukocyte Esterase Urine 1+ (NEG); Nitrite Urine NEG (NEG); Specific Gravity - Urine 1.025 (1.005-1.025); UACC Culture Trigger YES; Urine Blood 3+ (NEG); Urine Ketones 15 MG/DL (NEG); Urine Protein TRACE MG/DL (NEG-TRACE)
[2021-11-04 14:29] LABS: UPreg QC Valid YES; Urine Pregnancy NEGATIVE (NEGATIVE)
--- NOTE | 2021-11-04 14:31 | PC.NURSE ---
Pt seen this date for individual OT tx. Attempt made to engage pt in [facility] cognitive assessment however pt is unable to maintain attention to task secondary to high degree of distractibility as well as overstimulating environment filled with large amount of extraneous auditory and visual stimulation. Pt is engaged in Matching game with max verbal cues for initiation, follow through, and termination of task. It is necessary to grade activity decreasing difficulty secondary to cognitive deficit/impairment. Pt presents bright, cheerful, and receptive to tx.
[2021-11-04 14:34] LABS: Bacteria Urine 4+ /LPF; RBC Urine 50-75 /HPF (0); Squamous Epithelial Cell Urine 3+ /LPF
--- NOTE | 2021-11-04 14:40 | PC.NURSE ---
[facility] [place] SCAN CLEARANCE, RADIOLOGY AWARE SPECIMEN HAS BEEN COLLECTED AND IS IN PROGRESS.
[2021-11-04] MEDS: risperiDONE 1 MG TABLET PO ×2 (15:04→20:40)
[2021-11-04] MEDS: Propranolol HCL 20 MG TABLET PO ×2 (15:05→20:41)
[2021-11-04] MEDS: Atorvastatin Calcium 20 MG TABLET PO (15:05)
--- NOTE | 2021-11-04 15:43 | PC.NURSE ---
OBTAINED CONTACT INFORMATION FOR GLORIA (PTS BROTHER) & CASSANDRA [phone]. PER SNF, THEY MAINTAIN REGULAR CONTACT WITH PT. PT REQUESTING TO SPEAK WITH THEM.
[2021-11-04 20:40] VITALS: BP 113/65; PULSE 86; RESP 17; TEMP 36.4; O2SAT 96
[2021-11-04] MEDS: clonazePAM 0.5 MG TABLET PO (20:40)
[2021-11-04] MEDS: Melatonin 3 MG TABLET 9 MG PO (20:40)
[2021-11-04] MEDS: traZODone HCL 100 MG TABLET PO (20:41)
[2021-11-04] MEDS: Divalproex Sodium ER 500 MG TAB.ER.24H PO (20:41)
[2021-11-05 01:26] VITALS: BP 141/84; PULSE 75; RESP 16; TEMP 35.9; O2SAT 100
--- NOTE | 2021-11-05 06:20 | PC.NURSE ---
Patient slept through the night, no distress observed/reported, patient had one episode of bladder incontinence, disposition per [facility] is section 12 inpatient bed search, no update on bed search, patient gait slow but steady, VSS, behavior non concerning, VSS, will continue to monitor.
[2021-11-05 07:39] VITALS: BP 121/82; PULSE 92; RESP 17; TEMP 36; O2SAT 96
--- NOTE | 2021-11-05 09:44 | PM.PSYCN ---
History of Present Illness Date of Service: 11/05/2021 Chief Complaint: Section 12 Reason for Consult: aggression- f/u Requesting physician: Dorcas Rojas Discussed with referring provider: Yes Sources of Information: patient interviewed, chart reviewed and crisis/core team assessment reviewed HPI Narrative: Interim Hx: Pt presents as pleasant, greeting staff as they walk by. Pt reports she slept like a baby. Pt denies feeling sad or anxious. She also denies thoughts of wanting to hurt herself or others. Per nursing, no episodes of aggression towards self or others noted in the ED since admission. Pt asks if she can go home soon as she misses the staff there. On exam- notes bilateral action tremor, no cogwheel. Past Psychiatric History: Inpatient: [facility] 07/30-08/04/2021, [facility] 09/18/2021-10/06/2021 OP: [facility] Juana Rooney [phone]; clinician Linnette Pedersen [phone] Legal Guardian: Alison Gonzalez [phone] Brother- Gene Puentes [phone] Past medication trials: prozac, propanolol, clonazepam, depakote, abilify, trazodone Medical Evaluation Reviewed: Yes Review of Systems Review of Systems Yes all other systems are reviewed and are negative Cardiovascular: Denies chest pain, Denies rapid heart rate, Denies dyspnea and Denies dyspnea on exertion Respiratory: Denies chest congestion, Denies dyspnea and Denies dyspnea on exertion [facility] Medical History Anxiety Depression Hyperlipidemia Psoriasis Seizure Family History: unknown Social History: Lives mostly with parents until their passing, then lived briefly with brother and his , in 2014 went to halfway through [facility]. No children. Not . Trauma History: unknown Diagnostics Vital Signs (24Hr): Vital Signs - 24 hr 11/05/21 21:48 11/06/21 05:41 Temperature 97 F 97.4 F Pulse Rate 77 78 Respiratory Rate 20 16 Blood Pressure 129/78 149/86 H Pulse Oximetry 99 98 Oxygen Delivery Method Room Air Room Air BMI result Body Mass Index 30.2 Labs Results: 11/03/21 21:08 11/03/21 21:08 Labs: Laboratory Results - last 48 hr 11/04/21 11/04/21 11/04/21 12:54 12:55 14:17 Vitamin B12 690 Folate > 20.0 TSH 1.51 Urine Color YELLOW Urine Appearance CLOUDY Urine pH 6.0 Ur Specific [place] 1.025 Urine Protein TRACE Urine Glucose (UA) NEG Urine Ketones 15 Urine Blood 3+ H Urine Nitrite NEG Ur Leukocyte Esterase 1+ H Urine RBC 50-75 H Urine WBC 5-9 H Ur Squamous Epith Cells 3+ Urine Bacteria 4+ Urine Test 11/04/21 14:17 Vitamin B12 Folate TSH Urine Color Urine Appearance Urine pH Ur Specific [place] Urine Protein Urine Glucose (UA) Urine Ketones Urine Blood Urine Nitrite Ur Leukocyte Esterase Urine RBC Urine WBC Ur Squamous Epith Cells Urine Bacteria Urine Test NEGATIVE Imaging Radiology Impressions: ITS Impressions Head CT 11/04/21 14:59 IMPRESSION: No acute intracranial process seen. 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 Mental Status Exam Mental Status Exam Narrative: Appearance: poor dentition, right eye involuntary movements, casually groomed, fair hygiene in NAD Behavior:friendly psychomotor: no agitation or retardation noted Speech:mumbles at times, spontaneous Thought process:goal oriented wanting to go back home soon Thought content:no signs of psychosis, mostly just missing home Mood: okay Affect: constricted, congruent SI:none HI:none VH/AH:none Delusions: none Insight/judgment:poor x 2. Memory/cog: alert, not formally tested. Medications Medications Current Medications Atorvastatin Calcium (Atorvastatin Calcium 20 Mg Tablet) 20 mg PO DAILY [facility] Last Admin: 11/06/21 09:20 Dose: 20 mg Cephalexin HCl (Cephalexin 500 Mg Capsule) 500 mg PO QID [facility] Stop: 11/11/21 09:01 Last Admin: 11/06/21 13:33 Dose: 500 mg Clonazepam (Clonazepam 0.5 Mg Tablet) 0.5 mg PO BID [facility] Last Admin: 11/06/21 09:20 Dose: 0.5 mg Divalproex Sodium (Divalproex Sodium Er 500 Mg Tab.Er.24h) 500 mg PO BID [facility] Last Admin: 11/06/21 09:20 Dose: 500 mg Fluoxetine HCl (Fluoxetine Hcl 20 Mg Capsule) 40 mg PO DAILY [facility] Last Admin: 11/06/21 09:20 Dose: 40 mg Loperamide HCl (Loperamide Hcl 2 Mg Capsule) 2 mg PO Q4H PRN PRN Reason: loose stool Last Admin: 11/04/21 11:45 Dose: 2 mg Melatonin (Melatonin 3 Mg Tablet) 9 mg PO BEDTIME [facility] Last Admin: 11/05/21 21:14 Dose: 9 mg Pharmacy Consult (Consult Rx Perform Med Rec) 1 each MISCELLANE ONCE PRN PRN Reason: Consult order Propranolol HCl (Propranolol Hcl 20 Mg Tablet) 20 mg PO TID [facility]; Protocol Last Admin: 11/06/21 09:20 Dose: 20 mg Risperidone (Risperidone 1 Mg Tablet) 1 mg PO TID [facility] Last Admin: 11/06/21 09:20 Dose: 1 mg Trazodone HCl (Trazodone Hcl 100 Mg Tablet) 100 mg PO BEDTIME [facility] Last Admin: 11/05/21 21:15 Dose: 100 mg Allergies Allergies Allergy/AdvReac Type Severity Reaction Status Date / Time No Known Allergies Allergy Verified 12/30/20 19:57 [No Known Allergies*] Assessment & Plan Assessment & Plan (1) Intermittent explosive disorder: Status: Acute Code(s): F63.81 - Intermittent explosive disorder (2) Intellectual disability: Status: Acute Code(s): F79 - Unspecified intellectual disabilities (3) Cerebral palsy: Status: Acute Code(s): G80.9 - Cerebral palsy, unspecified Plan 11/05- pt has not presented with periods of explosive or aggressive behaviors towards self or others. She is taking medications as prescribed. She presents as friendly, polite. NOted on exam bilat action tremors, no cogwheel. continue current medications. [facility] bed search for [facility] bed- however, will continue to evaluate daily. I spent ___25___ minutes with the patient and/or on the patient floor today, greater than?50% of which was spent counseling/coordinating care.
[2021-11-05] MEDS: FLUoxetine HCl 20 MG CAPSULE 40 MG PO (09:49)
[2021-11-05] MEDS: risperiDONE 1 MG TABLET PO ×3 (09:49→21:15)
[2021-11-05] MEDS: Divalproex Sodium ER 500 MG TAB.ER.24H PO ×2 (09:49→21:21)
[2021-11-05] MEDS: clonazePAM 0.5 MG TABLET PO ×2 (09:49→21:21)
[2021-11-05] MEDS: Atorvastatin Calcium 20 MG TABLET PO (09:49)
[2021-11-05] MEDS: Propranolol HCL 20 MG TABLET PO ×3 (09:49→21:14)
--- NOTE | 2021-11-05 11:20 | PC.NURSE ---
pleasant and socializing appropriately with both staff and other pt's, took her morning meds, nad, steady gait, wants to go home, informed of bed search
--- NOTE | 2021-11-05 14:27 | PC.NURSE ---
Pt seen for individual OT tx this date. Pt presents bright, cheerful, and receptive to engaging in coloring and sensory activities. Pt persists with high degree of distractibility and requires ongoing verbal cues to maintain attention to task secondary to ID.
--- NOTE | 2021-11-05 15:42 | PC.NURSE ---
Addendum entered by Gene Card 11/05/21 15:44: pt medicated per provider order, pt compliant Original Note: pt alert, requesting to return to shelter, pt states that she is bored here, offered coloring books, pt declined, redirected w tv and a snack. pt pending bed search, spoke adriane Tan, updated her regarding bed search still pending.
--- NOTE | 2021-11-05 16:06 | MHC.CARE ---
[facility] completed [facility] Psychiatry rounds have been completed
[2021-11-05] MEDS: Acetaminophen 325 MG TABLET 650 MG PO (18:21)
--- NOTE | 2021-11-05 18:26 | PC.NURSE ---
pt complaining of 6/10 headache and foot pain, medicated per provider order, pt requesting more sendy marley.
[2021-11-05] MEDS: Melatonin 3 MG TABLET 9 MG PO (21:14)
[2021-11-05] MEDS: traZODone HCL 100 MG TABLET PO (21:15)
[2021-11-05 21:48] VITALS: BP 129/78; PULSE 77; RESP 20; TEMP 36.1; O2SAT 99
[2021-11-06 05:41] VITALS: BP 149/86; PULSE 78; RESP 16; TEMP 36.3; O2SAT 98
--- NOTE | 2021-11-06 07:13 | PC.NURSE ---
Patient slept through the night, no distress observed/reported, patient had a bladder incontinence episode, disposition per [facility] is section 12 inpatient bed search, no update on bed search, patient gait slow but steady, VSS, behavior non concerning, VSS, will continue to monitor.
--- NOTE | 2021-11-06 07:21 | PC.NURSE ---
PT AWAKE. ATE BKFST. CALM. REQUESTING TO CALL CUSTODIAL
[2021-11-06] MEDS: Atorvastatin Calcium 20 MG TABLET PO (09:20)
[2021-11-06] MEDS: Propranolol HCL 20 MG TABLET PO ×2 (09:20→15:26)
[2021-11-06] MEDS: FLUoxetine HCl 20 MG CAPSULE 40 MG PO (09:20)
[2021-11-06] MEDS: risperiDONE 1 MG TABLET PO ×2 (09:20→15:26)
[2021-11-06] MEDS: Divalproex Sodium ER 500 MG TAB.ER.24H PO (09:20)
[2021-11-06] MEDS: clonazePAM 0.5 MG TABLET PO (09:20)
[2021-11-06] MEDS: Acetaminophen 325 MG TABLET 650 MG PO (09:44)
--- NOTE | 2021-11-06 11:25 | MHC.CARE ---
CARE Team notifed N cloth mercerizing supervisor Lionel, that current recommendation would be return to snf upon re-assessment . Plan for [facility] to send clinician for re-evaluation.
[2021-11-06] MEDS: cephALEXin 500 MG CAPSULE PO (13:33)
--- NOTE | 2021-11-06 13:42 | MHC.CARE ---
CARE Team case consulted with Mirian Godwin NP. Plan for Pt to be discharged back to halfway. CARE Team updated [facility] Crisis sheet manufacturing supervisor, Andres regarding disposition. CARE Team spoke with halfway director and informed them of disposition change.
--- NOTE | 2021-11-06 13:49 | PM.PSYCN ---
History of Present Illness Date of Service: 11/06/2021 Chief Complaint: Section 12 Reason for Consult: aggression- F/U Requesting physician: Dorcas Rojas Discussed with referring provider: Yes HPI Narrative: Interim HX: Pt continues to present as pleasant, friendly with staff. No aggression towards self or others. Pt reports matress in hospital is too hard- hopes she can go home soon as she states she likes the alf and staff there. She often expresses gratitude for care provided here in ED and tells staff I love you. She denies symptoms of sadness, anxious mood or suicidal or homicidal ideation. No signs of psychosis. Past Psychiatric History: Inpatient: [facility] 07/30-08/04/2021, [facility] 09/18/2021-10/06/2021 OP: [facility] Dr. Juana Rooney [phone]; clinician Linnette Pedersen [phone] Legal Guardian: Alison Gonzalez [phone] Brother- Gene Puentes [phone] Past medication trials: prozac, propanolol, clonazepam, depakote, abilify, trazodone Review of Systems Review of Systems Yes all other systems are reviewed and are negative Cardiovascular: Denies chest pain, Denies rapid heart rate, Denies dyspnea and Denies dyspnea on exertion Respiratory: Denies chest congestion, Denies dyspnea and Denies dyspnea on exertion [facility] Medical History Anxiety Depression Hyperlipidemia Psoriasis Seizure Family History: unknown Social History: Lives mostly with parents until their passing, then lived briefly with brother and his , in 2014 went to alf through [employer]. No children. Not . Trauma History: unknown Diagnostics Vital Signs (24Hr): Vital Signs - 24 hr 11/05/21 21:48 11/06/21 05:41 Temperature 97 F 97.4 F Pulse Rate 77 78 Respiratory Rate 20 16 Blood Pressure 129/78 149/86 H Pulse Oximetry 99 98 Oxygen Delivery Method Room Air Room Air BMI result Body Mass Index 30.2 Labs Results: 11/03/21 21:08 11/03/21 21:08 Labs: Laboratory Results - last 48 hr 11/04/21 11/04/21 11/04/21 12:54 14:17 14:17 Vitamin B12 690 Folate > 20.0 Urine Color YELLOW Urine Appearance CLOUDY Urine pH 6.0 Ur Specific [place] 1.025 Urine Protein TRACE Urine Glucose (UA) NEG Urine Ketones 15 Urine Blood 3+ H Urine Nitrite NEG Ur Leukocyte Esterase 1+ H Urine RBC 50-75 H Urine WBC 5-9 H Ur Squamous Epith Cells 3+ Urine Bacteria 4+ Urine Test NEGATIVE Imaging Radiology Impressions: ITS Impressions Head CT 11/04/21 14:59 IMPRESSION: No acute intracranial process seen. 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 Mental Status Exam Mental Status Exam Narrative: Appearance: poor dentition, right eye involuntary movements, casually groomed, fair hygiene in NAD Behavior:friendly psychomotor: no agitation or retardation noted Speech:mumbles at times, spontaneous Thought process:goal oriented wanting to go back home soon Thought content:no signs of psychosis, mostly just missing home Mood: okay Affect: constricted, congruent SI:none HI:none VH/AH:none Delusions: none Insight/judgment:poor x 2. Memory/cog: alert, not formally tested. Medications Medications Current Medications Atorvastatin Calcium (Atorvastatin Calcium 20 Mg Tablet) 20 mg PO DAILY [facility] Last Admin: 11/06/21 09:20 Dose: 20 mg Cephalexin HCl (Cephalexin 500 Mg Capsule) 500 mg PO QID [facility] Stop: 11/11/21 09:01 Last Admin: 11/06/21 13:33 Dose: 500 mg Clonazepam (Clonazepam 0.5 Mg Tablet) 0.5 mg PO BID [facility] Last Admin: 11/06/21 09:20 Dose: 0.5 mg Divalproex Sodium (Divalproex Sodium Er 500 Mg Tab.Er.24h) 500 mg PO BID [facility] Last Admin: 11/06/21 09:20 Dose: 500 mg Fluoxetine HCl (Fluoxetine Hcl 20 Mg Capsule) 40 mg PO DAILY [facility] Last Admin: 11/06/21 09:20 Dose: 40 mg Loperamide HCl (Loperamide Hcl 2 Mg Capsule) 2 mg PO Q4H PRN PRN Reason: loose stool Last Admin: 11/04/21 11:45 Dose: 2 mg Melatonin (Melatonin 3 Mg Tablet) 9 mg PO BEDTIME [facility] Last Admin: 11/05/21 21:14 Dose: 9 mg Pharmacy Consult (Consult Rx Perform Med Rec) 1 each MISCELLANE ONCE PRN PRN Reason: Consult order Propranolol HCl (Propranolol Hcl 20 Mg Tablet) 20 mg PO TID [facility]; Protocol Last Admin: 11/06/21 09:20 Dose: 20 mg Risperidone (Risperidone 1 Mg Tablet) 1 mg PO TID [facility] Last Admin: 11/06/21 09:20 Dose: 1 mg Trazodone HCl (Trazodone Hcl 100 Mg Tablet) 100 mg PO BEDTIME [facility] Last Admin: 11/05/21 21:15 Dose: 100 mg Allergies Allergies Allergy/AdvReac Type Severity Reaction Status Date / Time No Known Allergies Allergy Verified 12/30/20 19:57 [No Known Allergies*] Assessment & Plan Assessment & Plan (1) Intermittent explosive disorder: Status: Acute Code(s): F63.81 - Intermittent explosive disorder (2) Intellectual disability: Status: Acute Code(s): F79 - Unspecified intellectual disabilities (3) Cerebral palsy: Status: Acute Code(s): G80.9 - Cerebral palsy, unspecified Plan Ms. Puentes is a 41 year-old woman with hx of explosive disorder, intellectual disability, seizures, cerebral palsy who was brought from [facility] were she resides due to increase in aggressive behaviors towards staff, and peers. She has had two inpatient admission this year due to similar presentation back in 07/2021 at [facility] and 09/2021 at [facility]. Utox is negative. Discussed with OP provider switch to risperidone for behavioral management which was started outpatient last Tuesday. May consider seroquel as better option for behavioral outbursts, rather than robinson psychosis. Increase propanolol to 20mg po TID for impulsive, explosive behaviors. will continue depakote but eventually may consider switch to different mood stabilizer. Lower dose of clonazepam to 0.5mg po BID- as benzo can increase disinhibition especially in context of developmental delay. Will do head ct for subacute changes in terms of atrophy and microvascular changes if any. PLAN 1. Pt has not shown any signs of aggression towards self or others while in the ED in past 3 days. Medication changes were completed in coordination with her OP provider, Ambreen Nance. Medication Changes while in ED- 1. Propanolol was increased from 20mg po BID to 20 mg po TID for aggression- no side effects noted. 2. Abilify was discontinued. Risperidone 1mg po TID was started for behavioral control 3. Depakote was continued at same dose 500mg po BID. Ammonia was wnl. 4. Prozac was decreased to 40mg po daily to decrease activation from this antidepressant 5. Clonazepam decreased to 0.5mg po BID as higher dose may be cause disinhibition especially in setting of intellectual delays and has not shown to decrease agression. 2. Recommend patient is safe at this point to return home given that in past 3 days no signs of aggression towards self or others has been noted. 3. Pt noted to have bilat action tremor, no cogwheel, monitor for EPS or worsening with addition of risperidone. May consider switch to seroquel for behavioral management with less EPS. I spent _25 minutes with the patient and/or on the patient floor today, greater than?50% of which was spent counseling/coordinating care.
--- NOTE | 2021-11-06 15:28 | PC.NURSE ---
pt calm and cooperative, waiting to be picked up by senior care staff, medicated per provider order.
--- NOTE | 2021-11-06 15:40 | PC.NURSE ---
HAHN met with patient in the milieu, patient was pleasant on approach. Patient was happy to see HAHN and actively engaged. HAHN and patient played a round of AMY and had a discussion about patients likes/dislikes. Patient stated she just wants to go home and didnt want to play AMY anymore . HAHN had patient show her room off, then was able to get patient to sit and color for the remainder of the session.
== END 2021-11-06 15:49 | disposition home or self-care (01) ==
PROVIDERS: Physician Assistant Medical; Social Worker; Student in an Organized Health Care Education/Training Program; Emergency Provider Emergency Medicine Emergency Medical Services
DX: F63.81 Intermittent explosive disorder (principal); R45.851 Suicidal ideations; L84 Corns and callosities; G80.9 Cerebral palsy, unspecified; F79 Unspecified intellectual disabilities; F33.1 Major depressive disorder, recurrent, moderate; Z20.822 Contact with and (suspected) exposure to COVID-19; Z79.899 Other long term (current) drug therapy
CPT/HCPCS: 36415; 70450; 80053; 80164; 81001; 81025; 82140; 82607; 82746; 83036; 84443; 85025; 87086; 87635; 99284; 99285

== ENCOUNTER 2023-05-25 12:04 | Outpatient (REF) | payer MEDICARE, MEDICAID, SELFPAY ==
[2023-05-25 12:40] LABS: MANUAL DIFF FLAG NO
[2023-05-25 12:46] LABS: Basophils Percent Auto 0.4 % (0-2); Eosinophils Absolute Auto 0.1 X10*3/uL (0.0-0.4); Eosinophils Percent Auto 0.7 % (0-4); Hematocrit 39.2 % (37.0-47.0); Hemoglobin 13.3 g/dl (12.0-16.0); Imm Gran Abs Auto 0.02 X10*3/uL (0.00-0.03); Imm Gran Pct Auto 0.3 % (0.0-0.4); Lymphocytes Absolute Auto 3.1 X10*3/uL (1.2-4.9); Lymphocytes Percent Auto 39.8 % (20-40); Mean Corpuscular HGB Conc 33.9 g/dl (31.0-35.0); Mean Corpuscular Hemoglobin 33.7 pg (27.0-33.0); Mean Corpuscular Volume 99.2 fL (80.0-98.0); Mean Platelet Volume 8.7 fL (9.4-12.3); Monocytes Absolute Auto 0.4 X10*3/uL (0.1-1.2); Monocytes Percent Auto 5.5 % (2-11); Neutrophils Absolute Auto 4.1 x10*3/uL (2.0-8.3); Neutrophils Percent Auto 53.3 % (45-73); Platelet Count 244 X10*3/uL (160-400); Red Blood Count 3.95 X10*6/uL (4.20-5.50); Red Cell Distribution Width 12.3 % (11.0-16.0); White Blood Count 7.7 X10*3/uL (4.8-10.8)
[2023-05-25 12:50] LABS: Ammonia 36 umol/L (13-55)
[2023-05-25 13:17] LABS: Valproate 54.4 mcg/mL (50.0-100.0)
[2023-05-25 13:25] LABS: Alanine Aminotransferase 29 U/L (0-31); Albumin Level 3.6 g/dL (3.5-5.0); Alkaline Phosphatase 46 U/L (39-117); Anion Gap 12 (12-20); Aspartate Amino Transferase 43 U/L (5-31); Bilirubin Total 0.6 mg/dL (0.0-1.0); Blood Urea Nitrogen 19 mg/dL (9-16); Calcium 8.9 mg/dL (8.4-10.2); Carbon Dioxide 26 mmol/L (22-29); Chloride 104 mmol/L (96-108); Estimated Glomerular Filt Rate > 60; Glucose Random 80 mg/dL (60-115); Potassium 4.3 mmol/L (3.3-5.1); Sodium 138 mmol/L (135-145); Total Protein 7.6 g/dL (6.5-8.0)
[2023-05-25 13:40] LABS: Thyroid Stimulating Hormone 1.52 uIU/mL (0.32-4.0)
[2023-05-26 23:58] LABS: Prolactin 56.9 ng/mL
[2023-06-01 10:49] LABS: Risperidone 3.9 ng/mL; Risperidone + OH Risperidone 42.9 ng/mL
== END 2023-05-25 12:05 | disposition home or self-care (01) ==
LOC: HO.LAB 12:04
PROVIDERS: Visit Provider Clinical Nurse Specialist Psychiatric/Mental Health, Adult
DX: F63.81 Intermittent explosive disorder (principal); F34.81 Disruptive mood dysregulation disorder; Z79.899 Other long term (current) drug therapy
CPT/HCPCS: 36415; 80053; 80164; 80342; 82140; 84146; 84443; 85025

== ENCOUNTER 2024-09-12 15:41 | Outpatient (AMB) | payer MEDICARE, MEDICAID, SELFPAY ==
--- NOTE | 2024-09-12 15:42 | MHC.OFFWIV ---
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 - The toe pain was noted to begin on the preceding Tuesday, persisting for two days. - There was no reported trauma leading to the toe pain. - Physical signs included redness, warmth, and tenderness around the affected area. - Diabetes mellitus was denied by the patient. - An abrasion was identified on the toe - The patient has no known drug allergies. - she does take a twice daily ppx for uti's, Hiprex. Physical Exam General: Cooperative, healthy appearing, comfortable, no acute distress and well developed Orientation: Patient oriented x3 Limitations: No limitations Head: Normal to inspection Ears: Hearing grossly normal bilaterally Nose: Normal External nose present Face and sinus: Normal facial exam Eyes: Appearance normal, both eyes and all related structures Neck: Normal visual inspection and Yes full ROM Respiratory: Normal respiratory effort and able to speak in complete sentences. Skin: see below Extremities: left 2nd toe has an abrasion and healed scab on DIP with surrounding warmth, erythema and induration, ttp, full ROM and NVI. [facility] Medical History Anxiety Depression Hyperlipidemia Psoriasis Seizure Social History Alcohol intake: never Patient Tobacco Use Status: Never used Tobacco Review of Systems Const All systems reviewed & are unremarkable except as noted in HPI and below Assessment & Plan Assessment & Plan (1) Abscess of toe of left foot: Code(s): L02.612 - Cutaneous abscess of left foot Plan: Plan The patient likely has cellulitis in the toe and will begin treatment with oral Doxycycline, 100 mg twice daily for a seven-day course. Based on the patients UTI prophylaxis with Methenamine, I prescribed Doxycycline. The prescription will be sent to [facility], and follow-up with a sediment remediation consultant is advised if the infection does not resolve or worsens. Continuous monitoring and adherence to the treatment are essential, and the patient is informed about the possible need for further evaluation by Podiatry or ED. Patient was informed and verbally consented to the use of an ambient scribe for clinic note documentation during this visit. Medications: New doxycycline hyclate 100 mg PO BID 14 tabs 0RF Coding Level of Care Code New Pt Level 3 (15517) Diagnoses Abscess of toe of left foot L02.612
[2024-09-12 15:55] VITALS: BP 112/74; PULSE 79; TEMP 36.7; O2SAT 96
--- OUTSIDE RECORDS SUMMARY | 2024-09-12 16:30 | XMS_ITS | Encounter Summary ---
Author Organization [facility] Address [address] [place] [address] Care Team Providers Care Skein Spooler Name Role Phone Ellis Palma MD Primary Care Provider [phone] Reason for Visit * Reason Onset Date Comments Foot Infection 09/12/2024 Encounter Details Date Type Department Care Team ([facility] st Contact Info) Description 09/12/2024 Telephone Adult Medicine [address] [phone] Liliane Alvarez MA Foot Infection Social History Tobacco Use Types Packs/Day Years Used Date Smoking Tobacco: Never Smokeless Tobacco: Never Alcohol Use Standard Drinks/Week Comments No 0 (1 standard drink = 0.6 oz pur e alcohol) Comments Unknown Sex and Gender Information Value Date Recorded Sex Assigned at Female 07/11/2024 9:02 AM EST Legal Sex Female 10:18 AM EST Gender Identity Female 07/11/2024 9:02 AM EST Sexual Orientation Straight 07/11/2024 9: 02 AM EST documented as of this encounter Progress Notes * Nayla Alarcon RN - 09/12/2024 3:11 PM EDT Speaking with programmer analyst health it Francisca . She states the pt. Has new orthopedic shoes within the last 2 months and between her her great toe and 2 nd digit is painful from shoe rubbing against a bunion there. The pt. Attempted to place a gauze there for more comfort and the pt. Stated it was painful . The family service caseworker states it felt wet but pt. Would not let her look at . She also stated that it had a odor to it that smelled like infection. She denies there is swelling or streaking beyond this area that she can see . The pt.'s temperature is 98.4, no c/o weakness, dizziness, chills. No apts available office at this time I advised to have pt. Be evaluated a urgent care and if she develops wor sening symptoms (increase redness, swelling, fever) the ER. She agrees * Liliane Alvarez MA - 09/12/2024 2:48 PM EDT Patient call requires triage: Symptoms patient is presenting: Left foot Bunion infection,it smells and it hurts. How long has patient had these symptoms?: 3-4 days For ALL patients calling to schedule any appointment (routine, sick visit, follow up, consult, etc.) in the outpatient setting please ask the following questions: Do you have fever of higher than 101, sore throat with difficulty swallowing or severe shortness ofbreath? no If YES to any of these above symptoms, send a message to triage and do not book. Red dot. If no, an audio or video visit should be booked. Have you had close contact with someone with Coronavirus in the last 14 days? no Have you traveled abroad? no Have you traveled recently to another state outside of [place], [place], [place], [place], [place], [place], [place]? no o If yes, did you quarantine for 14 days or have a negative covid test? no If yes to any of the above, patient is not to be scheduled in office until after 14 day quarantine or negative covid test. If pain or injury related was it due to an accident at work or from a motor vehicle accident? If yes, date of accident/Injury: No If yes, gather 3rd alliance party insurance information Third Democrat Information: not applicable PCP: Ellis Palma MD Payor: MEDICARE / Plan: MEDICARE PART A & B / Product Type: Medicare / documented in this encounter Plan of Treatment Upcoming Encounters Date Type Department Care Team (Late st Contact Info) Description 09/14/2024 11:00 AM EDT Treatment Outpatient [facility] [place] [phone] Kaveh Garcia, PT [address] [place] [address] 09/17/2024 9:45 AM EDT Office Visit [address] [phone] Olivia Dunn NP [address] [place] [address] 09/18/2024 9:45 AM EDT Office Visit Obstetrics and Gynecology - [address] [phone] Rylee Beth CNM [address] [place] [address] 10/16/2024 10:00 AM EDT Office Visit Orthopedic Surgery - [place] [address] [phone] Dutch Schmidt, DPM [address] [address] 11/22/2024 11:20 AM EDT Appointment Radiology Department - [address] [phone] 03/15/2025 9:00 AM EDT Office Visit [address] [phone] Ellis Palma MD [address] [place] [address] documented as of this encounter Goals Goal Patient Goal Type Associated Problems Recent Progress Patient-Stated? Author PT LTG x 16 visits from 07/17/24 General Improving(08/2024 11:20 AM EDT) No Kaveh Garcia, PT Note: Pt will require SBA only on supine>sit Pt will require SBA on sit to stand Pt will present with > 75% of time fully clearing floor during ambulation Staff will be taught and provided exercises to perform independently with pt. documented as of this encounter Visit Diagnoses Not on filedocumented in this encounter Care Teams Skein Spooler Relationship Specialty Start Date End Date Ellis Palma MD [address] [place] [address] PCP - General Internal Medicine 06/29/21 documented as of this encounter
--- OUTSIDE RECORDS SUMMARY | 2024-09-12 16:30 | XMS_ITS | Encounter Summary ---
Author Organization [facility] Address [address] [place] [address] Care Team Providers Care Wealth Management Director Name Role Phone Ellis Palma MD Primary Care Provider [phone] Reason for Visit * Reason Onset Date Comments FALL PROTOCOL ORDERS 09/07/2024 Encounter Details Date Type Department Care Team (Late Contact Info) Description 09/07/2024 Telephone Adult Medicine [address] [phone] Carol Hudson MA FALL PROTOCOL ORDERS Social History Tobacco Use Types Packs/Day Years [...] as of this encounter Progress Notes * Carol Hudson MA - 09/07/2024 1:36 PM EDT FALL PROTOCOL ORDERS SIGNED FAXED AND MAILED TO PT ADDRESS PER REQUEST documented in this encounter Plan of Treatment Upcoming Encounters Date Type Department Care Team ([facility] Contact Info) Description 09/14/2024 11:00 AM EDT Treatment Outpatient [address] [phone] Kaveh Garcia, PT [address] [place] [address] 09/17/2024 9:45 AM EDT Office Visit Adult [address] [phone] Olivia Dunn NP [address] [place] [address] 09/18/2024 9:45 AM EDT Office Visit Obstetrics and Gynecology [address] [phone] Rylee Beth CNM [address] [place] [address] 10/16/2024 10:00 AM EDT Office Visit Orthopedic Surgery - [place] [address] [phone] Dutch Schmidt, DPM [address] [address] 11/22/2024 11:20 AM EDT Appointment Radiology Department - [address] [phone] 03/15/2025 9:00 AM EDT Office Visit Adult [address] [phone] Ellis Palma MD [address] [place] [address] documented as of this encounter Goals Goal Patient Goal Type Associated Problems Recent Progress Patient-Stated? Author PT LTG x 16 visits from 07/17/24 General [facility](08/2024 11:20 AM EDT) No Kaveh Garcia, PT Note: Pt will require SBA only on supine>sit Pt will require SBA on sit to stand Pt will present with > 75% of time fully clearing floor during ambulation Staff will be taught and provided exercises to perform independently with pt. documented as of this encounter Visit Diagnoses Not on filedocumented in this encounter Care Teams Wealth Management Director Relationship Specialty Start Date End Date Ellis Palma MD [address] [place] [address] PCP - General Internal Medicine 06/29/21 documented as of this encounter
--- OUTSIDE RECORDS SUMMARY | 2024-09-12 16:30 | XMS_ITS | Clinical Summary ---
Author Organization [facility] Address [address] [place] [address] Phone Care Team Providers Care Line Crewman Name Role Phone Ellis Palma MD Primary Care Provider [phone] Allergies No known active allergies Medications triamcinolone (KENALOG) 0.1 % cream Apply thin layer BID twice daily for 10 days; after 10 days cream can be used as needed. Cream can be applied to back and behind the ears 02/21/20 24 Active benztropine (COGENTIN) 1 mg tablet Take 1 tablet (1 mg total) by mouth 2 (two) times a day. Martha Brown prescribed Meds Active multivitamin (MULTIPLE VITAMINS ORAL) TAKE 1 TABLET BY MOUTH EVERY MORNING WITH FOOD. 12/29/19 24 Active ketoconazole (NIZORAL) 2 % shampoo Apply small amount over rash 5 minutes before bathing daily x2 weeks. Lather in hair to shampoo scalp twice weekly x3 weeks, then weekly as needed for dry scalp 10/24/19 24 Active divalproex (DEPAKOTE ER) 500 mg 24 hr tablet Take 1 tablet (500 mg total) by mouth at bedtime. Martha Brown prescribed Meds Active propranoloL (INDERAL) 20 mg tablet Martha Brown prescribed Meds Active risperiDONE (RisperDAL) 2 mg tablet Martha Brown prescribed Meds Active melatonin 3 mg tablet Take 3 tablets (9 mg total) by mouth at bedtime. Active ARIPiprazole (ABILIFY) 30 mg tablet Take 30 mg by mouth daily. Active clonazePAM (KlonoPIN) 1 mg tablet Take 0.5 mg by mouth 2 (two) times a day. Martha Brown prescribed Meds Active traZODone (DESYREL) 50 mg tablet Martha Brown prescribed Meds Active footcare,miscellan eous (FOOT CARE PRODUCTS MISC) by Does not apply route. Active medical supply, miscellaneous (MISCELLANEOUS MEDICAL SUPPLY MIS) Skin Protectants, Misc. (InterDry 10 x144 ) SHEET Apply 1 Strip topically See Admin Instructions. Apply InterDry cloth/Strip under bilateral breast to protect from moisture Daily. Reapply PRN is Soil 10/24/19 24 Active levonorgestrel-eth inyl estradiol (NORDETTE) 0.15-0.03 mg per tabletIndications: Encounter for repeat prescription of oral contraceptives Take 1 tablet by mouth 1 (one) time each day. 84 tablet 1 05/02/20 24 Active atorvastatin (LIPITOR) 20 mg tablet Take 1 tablet (20 mg total) by mouth 1 (one) time each day. 90 tablet 1 06/13/19 25 Active Tab-A-[place]eles Multivitamin w-iron 18-400 mg-mcg tablet tablet TAKE 1 TABLET BY MOUTH EVERY MORNING WITH FOOD. 90 tablet 1 06/13/19 25 Active divalproex (DEPAKOTE) [address] tablet Take 1 tablet (250 mg total) by mouth 1 (one) time each day in the morning. Martha Brown prescribed Meds Active acetaminophen (TYLENOL) 500 mg tabletIndications: Fatigue, unspecified type,Iron deficiency anemia, unspecified iron deficiency anemia type Take 1 tablet (500 mg total) by mouth every 6 (six) hours if needed for mild pain. 30 tablet 08/09/19 25 Active senna (SENOKOT) 8.6 mg tabletIndications: Fatigue, unspecified type,Iron deficiency anemia, unspecified iron deficiency anemia type Take 2 tablets (17.2 mg total) by mouth 1 (one) time each day. 90 each 1 08/09/19 25 Active ergocalciferol (VITAMIN D-2) 1,250 mcg (50,000 unit) capsule Take 1 capsule (50,000 Units total) by mouth 1 (one) time per week. 12 capsule 08/09/19 25 Active metroNIDAZOLE (METROCREAM) 0.75 % cream Apply topically 2 (two) times a day. 45 g 1 08/11/19 25 Active ibuprofen (ADVIL,MOTRIN) 600 mg tablet Take 1 tablet (600 mg total) by mouth every 6 (six) hours if needed for mild pain or moderate pain. for pain 60 tablet 09/05/19 25 Active nystatin (MYCOSTATIN) 100,000 unit/gram powder Apply 1 g topically 4 times daily as needed under bilateral breasts. 60 g 2 09/05/19 25 Active nystatin (MYCOSTATIN) 100,000 unit/gram powder Apply 1 g topically 4 times daily. Under bilateral breasts. 10/25/19 24 025 Discontinu ed(Reorder ) ibuprofen (ADVIL,MOTRIN) 600 mg tablet Take 1 Tablet by mouth every 6 hours as needed for Pain. 06/02/19 24 025 Discontinu ed(Reorder ) nitrofurantoin, macrocrystal-monoh ydrate, (MACROBID) 100 mg capsule Take 1 capsule (100 mg total) by mouth 2 (two) times a day for 5 days. 10 each 08/09/19 25 025 nystatin (MYCOSTATIN) 100,000 unit/gram powder Apply 1 g topically 4 times daily under bilateral breasts. 60 g 2 09/04/19 25 025 Discontinu ed(Reorder ) Active Problems Problem Noted Date Diagnosed Date Abnormal MRI, knee 11/01/2023 Effusion of left knee 11/01/2023 Unspecified urinary incontinence 07/21/2022 Behavior disturbance 08/31/2021 Overview (03/05/2024): Hospitalization July 2021, with yelling and spitting at staff at the correction, was believed to be related with change in psych medicine Recurrent cystitis 04/30/2021 Overview (03/05/2024): Follows with urology COVID-19 01/21/2021 Hammer toe 12/02/2020 Elevated liver enzymes 08/28/2018 Obesity (BMI 30-39.9) 08/22/2018 Bipolar 1 disorder (CMS/HCC V24, CMS/HCC V28) Assessment & Plan (06/20/2024 6:53 PM EST): Patient is stable. Patient is to continue following up with psychiatrist and take medications as prescribed and recommended. Development delay 01/23/2018 Assessment & Plan (06/20/2024 6:53 PM EST): Patient is to continue living at correction as she need physical assistance with daily living. Along with daily safety directions and medication management. Patient is to continue using walker for safety. Encourage correctionnursing home admissions director to keep patient active. Dyslipidemia 01/23/2018 Encounters Date Type Department Care Team Description 09/12/[address] [phone] Liliane Alvarez MA Foot Infection 09/07/[address] [phone] Ellis Palma MD faxed order ([employer]) 09/07/[address] [phone] Carol Hudson MA FALL PROTOCOL ORDERS 09/04/2024 10:30 AM EDT Treatment Outpatient Rehabilitation [address] [phone] Kaveh Garcia, PT Back pain, unspecified back location, unspecified back pain laterality, unspecified chronicity (Primary Dx) 09/03/[address] [phone] Liliane Alvarez MA Medication Problem 08/31/2024 11:30 AM EDT Treatment Outpatient Rehabilitation [address] [phone] Erica Alcantar, MANAGER OB Back pain, unspecified back location, unspecified back pain laterality, unspecified chronicity (Primary Dx) 08/30/2024 Telephone Adult Medicine [address] [phone] Ellis Palma MD faxed order ([employer]) 08/28/2024 11:30 AM EDT Treatment Outpatient [address] [phone] Weidler, Erica, MANAGER OB Back pain, unspecified back location, unspecified back pain laterality, unspecified chronicity (Primary Dx) 08/24/2024 11:00 AM EDT Treatment Outpatient [address] [phone] Weidler, Erica, MANAGER OB Back pain, unspecified back location, unspecified back pain laterality, unspecified chronicity (Primary Dx) 08/17/2024 11:00 AM EDT Treatment Outpatient [address] [phone] Radha, Maurilio, PT Back pain, unspecified back location, unspecified back pain laterality, unspecified chronicity (Primary Dx) 08/14/2024 11:00 AM EDT Treatment Outpatient [address] [phone] Weidler, Erica, MANAGER OB Back pain, unspecified back location, unspecified back pain laterality, unspecified chronicity (Primary Dx) 08/10/2024 11:00 AM EDT Treatment Outpatient [address] [phone] Radha, Maurilio, PT Back pain, unspecified back location, unspecified back pain laterality, unspecified chronicity (Primary Dx) 08/08/2024 11:00 AM EDT Office Visit Adult Medicine [address] [phone] Olivia Dunn NP Fatigue, unspecified type (Primary Dx); Eczema, unspecified type; Iron deficiency anemia, unspecified iron deficiency anemia type; Need for hepatitis C screening test 08/08/[address] [phone] Olivia Dunn NP Lab Results (UA suspicious for UTI.) 08/07/2024 11:00 AM EDT Treatment Outpatient [address] [phone] Weidler, Erica, MANAGER OB Back pain, unspecified back location, unspecified back pain laterality, unspecified chronicity (Primary Dx) 08/07/[address] [phone] Ellis Palma MD Fatigue 08/06/2024 1:00 PM EDT Telemedicine Vascular Surgery - [address] [phone] Gigi Holguin MD Obesity (BMI 30-39.9) (Primary Dx); Development delay; Localized swelling of both lower legs 08/02/2024 11:00 AM EDT Treatment Outpatient [address] [phone] Weidler, Erica, MANAGER OB Back pain, unspecified back location, unspecified back pain laterality, unspecified chronicity (Primary Dx) 07/31/2024 11:00 AM EDT Treatment Outpatient [address] [phone] Weidler, Erica, MANAGER OB Back pain, unspecified back location, unspecified back pain laterality, unspecified chronicity (Primary Dx) 07/27/2024 12:30 PM EDT Treatment Outpatient [address] [phone] Weidler, Erica, MANAGER OB Back pain, unspecified back location, unspecified back pain laterality, unspecified chronicity (Primary Dx) 07/25/2024 1:00 PM EDT Treatment Outpatient [address] [phone] Weidler, Erica, MANAGER OB Back pain, unspecified back location, unspecified back pain laterality, unspecified chronicity (Primary Dx) 07/18/2024 10:45 AM EST Office Visit Orthopedic Surgery [facility] [address] [facility] [address] [place] [phone] Dutch Schmidt, DPM Acquired hammer toe of right foot (Primary Dx); Hammer toe of left foot; Bilateral femoral artery stenosis (CMS/HCC V24); Pain in toe of left foot; Pain in toe of right foot; Dermatophytosis of nail; Acquired hallux valgus of left foot; Acquired hallux valgus of right foot 07/17/2024 11:00 AM EST Evaluation Outpatient Rehabilitation - [address] [phone] Kaveh Garcia, PT Back pain, unspecified back location, unspecified back pain laterality, unspecified chronicity 07/17/2024 Plan of Care Documentation Outpatient Rehabilitation - [address] [phone] 07/12/2024 9:43 AM EST - 07/12/2024 11:59 PM EST Hospital Encounter [facility] Ultrasound [address] [place] [phone] Localized swelling of both lower legs Discharge Disposition: Home or Self Care 07/11/2024 Telephone Orthopedic Surgery [facility] [address] [facility] [address] [place] [phone] Robson Perdomo MD 07/09/2024 10:00 AM EST Office Visit Adult Medicine [address] [phone] Ellis Palma MD Irritation of right eye (Primary Dx) 07/03/2024 Telephone Adult Medicine [address] [phone] Ellis Palma MD Eye Problem; correction; triage 06/27/2024 Telephone Adult Medicine [address] [phone] Ellis Palma MD Forms/questionnai res 06/25/2024 Telephone Adult Medicine [address] [phone] Ellis Palma MD prior auth medication (Lidocaine 5% patches) 06/20/2024 11:00 AM EST Office Visit Adult [address] [phone] Olivia Dunn NP Back pain, unspecified back location, unspecified back pain laterality, unspecified chronicity (Primary Dx); Bipolar 1 disorder ([facility] V24, [facility] V28); Development delay 06/20/2024 Telephone Obstetrics and Gynecology - [address] [phone] Rylee Beth CNM Pelvic Pain from Last 3 Months Immunizations Name Administration Dates Next Due Influenza Quadravalent, MDCK , 0.5ml, preservative free (Flucelvax) 6mo and older 02/09/2023,03/22/2019,04/05/2018 Influenza trivalent, 0.5mL, preservative free (Fluarix; FluLaval; Fluzone) ages 6mo and older (Afluria) 3 years and older 02/21/2024 Tdap Tetanus diptheria acell ular pertussis (Boostrix; Adacel) 7yo and older 08/22/2018 Surgical History Surgery Date Site/Laterality Comments FOOT SURGERY PROCEDURE: HISTORICAL FOOT SURGERY; COMMENT: ? bunionectomy Medical History Medical History Date Comments Development delay DX:Development delay Dyslipidemia 01/23/2018 DX:Dyslipidemia Overweight 01/23/2018 DX:Overweight Bipolar 1 disorder (CMS/HCC V24, CMS/HCC V28) 01/23/2018 DX:Bipolar 1 disorder (HCC) Obesity (BMI 30-39.9) 08/22/2018 DX:Obesity (BMI 30-39.9) Elevated liver enzymes 08/28/2018 DX:Elevat ed liver enzymes Recurrent cystitis 04/30/2021 DX:Recurrent cystitis; COMMENT: Follows with urology Family History Medical History Relation Name Comments Breast cancer Neg Hx Relation Name Status Comments Brother Alive Father Mother Sister Alive Social History Tobacco Use Types Packs/Day Years Used Date Smoking Tobacco: Never Smokeless Tobacco: Never Tobacco Cessation:Counseling Given: Not Answered Alcohol Use Standard Drinks/Week Comments No 0 (1 standard drink = 0.6 oz pur e alcohol) Comments Unknown Sex and Gender Information Value Date Recorded Sex Assigned at Female 07/11/2024 9:02 AM EST Legal Sex Female 10:18 AM EST Gender Identity Female 07/11/2024 9:02 AM EST Sexual Orientation Straight 07/11/2024 9: 02 AM EST Obstetrics History Last Filed Vital Signs Vital Sign Reading Time Taken Comments Blood Pressure 101/75 08/08/2024 11:19 AM EDT Pulse 61 08/08/2024 11:19 AM EDT Temperature 36.2 ??C (97.2 ??F) 08/08/2024 11:19 AM E DT Respiratory Rate 14 08/08/2024 11:19 AM EDT Oxygen Saturation 99% 08/08/2024 11:19 AM EDT Inhaled Oxygen Concentration - - Weight 77.2 kg (170 lb 3.2 oz) 08/08/2024 11:19 AM EDT Height 157.5 cm (5' 2 ) 08/08/2024 11:19 AM EDT Body Mass Index 31.13 08/08/2024 11:19 AM EDT Plan of Treatment Upcoming Encounters Date Type Department Care Team (Late st Contact Info) Description 09/14/2024 11:00 AM EDT Treatment Outpatient Rehabilitation - [address] [phone] Kaveh Garcia, PT [address] [place] [address] 09/17/2024 9:45 AM EDT Office Visit Adult Medicine [place] - [address] [phone] Olivia Dunn CABLE STRETCHER AND TESTER [address] [place] [address] 09/18/2024 9:45 AM EDT Office Visit Obstetrics and Gynecology - [address] [phone] Rylee Beth CNM [address] [place], [place] 10/16/2024 10:00 AM EDT Office Visit Orthopedic Surgery - [place] [address] [phone] Dutch Schmidt, DPM [address] [address] 11/22/2024 11:20 AM EDT Appointment Radiology Department - [address] [phone] 03/15/2025 9:00 AM EDT Office Visit Adult Medicine [address] [phone] Ellis Palma MD [address] [place] [address] Health Maintenance Due Date Last Done Comments Medicare Annual Wellness Visit 04/24/2022 Social Influencers of Health Screening 04/24/2022 COVID-19 Vaccine ( season) 2024 04/05/2021, 06/04/2020 Depression Screening 02/20/2025 02/21/2024 Breast Cancer Screening 11/13/2025 11/14/19 24, 11/14/2023, 11/11/2022 Cervical Cancer Screening: HPV 05/14/2026 05/14/2021 DTaP,Tdap,and Td Vaccines (2 - Td or Tdap) 08/22/2028 08/22/2018 Cholesterol Screening (Lipid Panel) 02/21/2029 02/22/2024, 02/22/2024 Influenza Vaccine Completed 02/21/2024, , 03/22/2019, Additional history exists Hepatitis C Screening Completed 08/09/2024 HIB Vaccines Aged Out No longer eligi ble based on patient's age to complete this topic HIV Screening Discontinued HPV Vaccines Aged Out No longer eligi ble based on patient's age to complete this topic Hepatitis A Vaccines Aged Out No long er eligible based on patient's age to complete this topic Hepatitis B Vaccines Discontinued IPV Vaccines Aged Out No longer eligi ble based on patient's age to complete this topic MMR Vaccines Aged Out No longer eligi ble based on patient's age to complete this topic Meningococcal ACWY Vaccine Aged Out N o longer eligible based on patient's age to complete this topic Meningococcal B Vaccine Aged Out No l onger eligible based on patient's age to complete this topic Pneumococcal Vaccine: Pediatrics (0 to 5 Years) and At-Risk Patients (6 to 64 Years) Aged Out No longer eligible based on patient's age to complete this topic RSV Immunization Patients Under 20 months Aged Out No longer eligible based on patient's age to complete this topic Varicella Vaccines Aged Out No longer eligible based on patient's age to complete this topic Goals Goal Patient Goal Type Associated Problems Recent Progress Patient-Stated? Author PT LTG x 16 visits from 07/17/24 General [facility](08/2024 11:20 AM EDT) No Kaveh Garcia, PT Note: Pt will require SBA only on supine>sit Pt will require SBA on sit to stand Pt will present with > 75% of time fully clearing floor during ambulation Staff will be taught and provided exercises to perform independently with pt. Procedures Procedure Name Priority Date/Time Associated Diagnosis Comments HEPATITIS C ANTIBODY Routine 08/09/2024 1:38 PM EDT Fatigue, unspecified type Iron deficiency anemia, unspecified iron deficiency anemia type Need for hepatitis C screening test COMPREHENSIVE METABOLIC PANEL Routine 08/09/2024 1:38 PM EDT Fatigue, unspecified type Iron deficiency anemia, unspecified iron deficiency anemia type Need for hepatitis C screening test VITAMIN B12 Routine 08/09/2024 1:38 PM EDT Fatigue, unspecified type Iron deficiency anemia, unspecified iron deficiency anemia type Need for hepatitis C screening test FOLATE Routine 08/09/2024 1:38 PM EDT Fatigue, unspecified type Iron deficiency anemia, unspecified iron deficiency anemia type Need for hepatitis C screening test IRON AND TIBC Routine 08/09/2024 1:38 PM EDT Fatigue, unspecified type Iron deficiency anemia, unspecified iron deficiency anemia type Need for hepatitis C screening test FERRITIN Routine 08/09/2024 1:38 PM EDT Fatigue, unspecified type Iron deficiency anemia, unspecified iron deficiency anemia type Need for hepatitis C screening test KOROMA URINE CULTURE TUBE Routine 08/08/2024 12:13 PM EDT Fatigue, unspecified type Iron deficiency anemia, unspecified iron deficiency anemia type URINALYSIS WITH REFLEX MICROSCOPIC AND CULTURE Routine 08/08/2024 12:13 PM EDT Fatigue, unspecified type Iron deficiency anemia, unspecified iron deficiency anemia type URINALYSIS WITH REFLEX MICROSCOPIC AND CULTURE Routine 08/08/2024 12:13 PM EDT Fatigue, unspecified type Iron deficiency anemia, unspecified iron deficiency anemia type CULTURE URINE Routine 08/08/2024 12:13 PM EDT Fatigue, unspecified type Iron deficiency anemia, unspecified iron deficiency anemia type VAS US DUPLEX LOWER EXT VENOUS INSUFFICIENCY BILATERAL Routine 07/12/2024 10:22 AM EST Localized swelling of both lower legs LIPID PANEL Routine 02/22/2024 HM DEPRESSION SCREENING Routine 02/21/2024 SCREENING MAMMOGRAPHY BI 2-VIEW BREAST INC CAD Routine 11/14/2023 4:09 PM EDT Encounter for screening mammogram for malignant neoplasm of breast HM HPV Routine 05/14/2021 from Last 3 Months or Most Recently Relevant to Health Maintenance Results * Hepatitis C antibody (08/09/2024 1:38 PM EDT) Hepatitis C Antibody Negative Negative LAB CHEMISTRY METHOD 08/09/2024 6:48 PM EDT [facility] Blood Venous blood specimen / Unknown Venipuncture / Unknown 08/09/2024 1:38 PM EDT 08/09/2024 1:38 PM EDT Olivia Dunn CABLE STRETCHER AND TESTER LAB BLOOD ORDERABLES Final R esult Performing Organization Address [facility]/ZIP Co de Phone Number [facility] [address] [place] [address], [place] [phone] * Iron and TIBC (08/09/2024 1:38 PM EDT) Iron 69 40 - 150 mcg/dL LAB CHEMISTRY METHOD 08/09/2024 5:17 PM EDT [facility] TIBC 314 250 - 450 mcg/dL LAB CHEMISTRY METHOD 08/09/2024 5:17 PM EDT [facility] Iron Saturation 22 15 - 50 % LAB CHEMISTRY METHOD 08/09/2024 5:17 PM EDT [facility] Blood Venous blood specimen / Unknown Venipuncture / Unknown 08/09/2024 1:38 PM EDT 08/09/2024 1:38 PM EDT Olivia Dunn CABLE STRETCHER AND TESTER LAB BLOOD ORDERABLES Final R esult Performing Organization Address City/[facility]/ZIP Co de Phone Number [facility] [address] [place] [address], [place] [phone] * (ABNORMAL) Folate (08/09/2024 1:38 PM EDT) Folate >20.0(H) 2.8 - 17.0 ng/ml LAB CHEMISTRY METHOD 08/09/2024 5:40 PM EDT [facility] Blood Venous blood specimen / Unknown Venipuncture / Unknown 08/09/2024 1:38 PM EDT 08/09/2024 1:38 PM EDT Olivia Dunn CABLE STRETCHER AND TESTER LAB BLOOD ORDERABLES Final R esult Performing Organization Address City/[facility]/ZIP Co de Phone Number [facility] [address] [place] [address], [place] [phone] * Ferritin (08/09/2024 1:38 PM EDT) Pathologist [facility] Ferritin 53 8 - 252 ng/mL LAB CHEMISTRY METHOD 08/09/2024 5:40 PM EDT [facility] Blood Venous blood specimen / Unknown Venipuncture / Unknown 08/09/2024 1:38 PM EDT 08/09/2024 1:38 PM EDT Olivia Dunn CABLE STRETCHER AND TESTER LAB BLOOD ORDERABLES Final R esult Performing Organization Address [facility]/ZIP Co de Phone Number [facility] [address] [place] [address], [place] [phone] * Vitamin B12 (08/09/2024 1:38 PM EDT) [facility] Vitamin B-12 666 250 - 900 pcg/mL LAB CHEMISTRY METHOD 08/09/2024 5:40 PM EDT [facility] Blood Venous blood specimen / Unknown Venipuncture / Unknown 08/09/2024 1:38 PM EDT 08/09/2024 1:38 PM EDT Olivia Dunn CABLE STRETCHER AND TESTER LAB BLOOD ORDERABLES Final R esult Performing Organization Address City/[facility]/ZIP Co de Phone Number [facility] [address] [place] [address], [place] [phone] * (ABNORMAL) Comprehensive metabolic panel (08/09/2024 1:38 PM EDT) [facility] Sodium 138 133 - 145 mmol/L LAB CHEMISTRY METHOD 08/09/2024 5:40 PM EDT [facility] Potassium 3.9 3.5 - 5.5 mmol/L LAB CHEMISTRY METHOD 08/09/2024 5:40 PM [facility] Chloride 105 96 - 110 mmol/L LAB CHEMISTRY METHOD 08/09/2024 5:40 PM [facility] CO2 28 21 - 32 mmol/L LAB CHEMISTRY METHOD 08/09/2024 5:40 PM [facility] Anion Gap 5 3 - 11 LAB CHEMISTRY METHOD 08/09/2024 5:40 PM [facility] Glucose 135(H) 70 - 100 mg/dL LAB CHEMISTRY METHOD 08/09/2024 5:40 PM [facility] BUN 14 5 - 25 mg/dL LAB CHEMISTRY METHOD 08/09/2024 5:40 PM [facility] Creatinine 0.62 0.50 - 1.10 mg/dL LAB CHEMISTRY METHOD 08/09/2024 5:40 PM [facility] eGFR 113 >=60 mL/min/1. 73m2 LAB CHEMISTRY METHOD 08/09/2024 5:40 PM [facility] Comment:Calculation based on the??Chronic Kidney Disease Epidemiology Collaboration (CKD-EPI) equation refit??without adjustment for race. BUN/Creatinine Ratio 22.6 LAB CHEMISTRY METHOD 08/09/2024 5:40 PM [facility] Calcium 9.4 8.5 - 10.5 mg/dL LAB CHEMISTRY METHOD 08/09/2024 5:40 PM [facility] AST (SGOT) 33 10 - 42 unit/L LAB CHEMISTRY METHOD 08/09/2024 5:40 PM [facility] ALT (SGPT) 23 10 - 60 unit/L LAB CHEMISTRY METHOD 08/09/2024 5:40 PM [facility] Alkaline Phosphatase 58 42 - 121 unit/L LAB CHEMISTRY METHOD 08/09/2024 5:40 PM [facility] Total Protein 7.7 6.0 - 8.0 g/dL LAB CHEMISTRY METHOD 08/09/2024 5:40 PM EDT [facility] Albumin 3.1(L) 3.2 - 5.0 g/dL LAB CHEMISTRY METHOD 08/09/2024 5:40 PM EDT [facility] Total Bilirubin 0.2 0.0 - 1.4 mg/dL LAB CHEMISTRY METHOD 08/09/2024 5:40 PM EDT [facility] Blood Venous blood specimen / Unknown Venipuncture / Unknown 08/09/2024 1:38 PM EDT 08/09/2024 1:38 PM EDT Olivia Dunn NP LAB BLOOD ORDERABLES Final R esult [facility] [address] [place] [address], [place] [phone] * (ABNORMAL) Urinalysis with reflex microscopic and culture (08/08/2024 12:13 PM EDT) Specific [place] Urine 1.015 1.003 - 1.030 LAB URINALYSIS - AUTOMATED METHOD 08/08/2024 2:15 PM EDT [facility] pH, Urine 6.0 5.0 - 8.0 pH LAB URINALYSIS - AUTOMATED METHOD 08/08/2024 2:15 PM T [facility] Leukocytes, Urine Moderate(A) Negative LAB URINALYSIS - AUTOMATED METHOD 08/08/2024 2:15 PM T [facility] Nitrite, Urine Negative Negative LAB URINALYSIS - AUTOMATED METHOD 08/08/2024 2:15 PM EDT [facility] Protein, Urine Negative <=Trace mg/dL LAB URINALYSIS - AUTOMATED METHOD 08/08/2024 2:15 PM EDT [facility] Glucose, Urine Negative Negative mg/dL LAB URINALYSIS - AUTOMATED METHOD 08/08/2024 2:15 PM EDT [facility] Ketones, Urine Negative Negative mg/dL LAB URINALYSIS - AUTOMATED METHOD 08/08/2024 2:15 PM EDT [facility] Urobilinogen , Urine 0.2 0.2 - 1.0 mg/dL LAB URINALYSIS - AUTOMATED METHOD 08/08/2024 2:15 PM EDT [facility] Bilirubin, Urine Negative Negative LAB URINALYSIS - AUTOMATED METHOD 08/08/2024 2:15 PM EDT [facility] Blood, Urine Small(A) Negative LAB URINALYSIS - AUTOMATED METHOD 08/08/2024 2:15 PM T [facility] RBC, Urine 18.3(H) 0 - 4 /HPF LAB URINALYSIS - AUTOMATED METHOD [facility] WBC, Urine 17.3(H) 0 - 4 /HPF LAB URINALYSIS - AUTOMATED METHOD 08/08/2024 2:15 PM [facility] Squamous Epithelial, Urine >100(H) 0 - 60 /LPF LAB URINALYSIS - AUTOMATED METHOD 08/08/2024 2:15 PM [facility] Bacteria, Urine Few(A) Negative /HPF LAB URINALYSIS - AUTOMATED METHOD 08/08/2024 2:15 PM [facility] Hyaline Casts, Urine 0.4 0 - 3 /LPF LAB URINALYSIS - AUTOMATED METHOD 08/08/2024 2:15 PM [facility] Urine Urine specimen obtained by clean catch procedure / Unknown Non-blood Collection / Unknown 08/08/2024 12:13 PM EDT 08/08/2024 12:13 PM EDT us Olivia Dunn CABLE STRETCHER AND TESTER LAB URINE ORDERABLES Final R esult [facility] [address] [place] [address], [place] [phone] * Koroma urine culture tube (08/08/2024 12:13 PM EDT) Pathologist [facility] Extra Tube Hold for add-ons. 08/08/2024 3:01 PM EDT [facility] Comment:Auto resulted. Urine Urine specimen obtained by clean catch procedure / Unknown Non-blood Collection / Unknown 08/08/2024 12:13 PM EDT 08/08/2024 12:13 PM EDT Olivia Dunn CABLE STRETCHER AND TESTER LAB URINE ORDERABLES Final R esult Performing Organization Address City/[facility]/ZIP Co de Phone Number [facility] [address] [place] [address], [place] [phone] * Culture urine (08/08/2024 12:13 PM EDT) Pathologist [facility] Culture, Urine >100,000 CFU/mL Mixed bacterial morphotypes present suggestive of possible contamination during collection. Suggest appropriate recollection if clinically indicated. 08/10/2024 12:59 PM EDT [facility] Urine Urine specimen obtained by clean catch procedure / Unknown Non-blood Collection / Unknown 08/08/2024 12:13 PM EDT 08/08/2024 2:15 PM EDT Olivia Dunn CABLE STRETCHER AND TESTER LAB MICROBIOLOGY - GENERAL O RDERABLES Final Result [facility] [address] [place] [address], [place] [phone] * Vascular US duplex lower extremity venous insufficiency bilateral (07/12/2024 10:22 AM EST) Anatomical Region Laterality Modality Vascular, Abdomen Ultrasound 07/18/2024 10:4 8 AM EST Impressions 07/18/2024 2:03 PM EST No deep venous thrombosis of either lower extremity. No evidence of venous insufficiency. -------- FINAL REPORT -------- Dictated By: Bertin Muñoz Dictated Date: 07/18/2024 10:48 ET Assigned Physician: Bertin Muñoz Reviewed and Electronically Signed By: Bertin Muñoz Signed Date: 07/18/2024 14:03 ET Workstation ID: [id number] Transcribed By: Self Edit Transcribed Date: 07/18/2024 10:48 ET Narrative 07/18/2024 2:03 PM EST PROCEDURE: Bilateral lower extremity deep vein thrombosis and venous insufficiency study. HISTORY: Venous insufficiency. COMPARISON: None. TECHNIQUE: Grayscale, color Doppler, and spectral Doppler ultrasound evaluation of the deep venous structures of the lower extremities. ??Evaluation of the greater and lesser saphenous veins was also performed to evaluate for venous insufficiency. ??Augmentation and compression maneuvers were performed. FINDINGS: The deep venous structures of the lower extremities demonstrate normal compressibility with normal color and spectral Doppler flow and a normal response to augmentation maneuvers. The diameter of the greater saphenous vein near the saphenofemoral junction is 5 mm on the left and 7 mm on the right. The left lesser saphenous vein was not visualized. ??There is no abnormal reflux with augmentation maneuvers to suggest venous valvular insufficiency in the greater and right lesser saphenous veins. Procedure Note Bertin Muñoz MD - 07/18/2024 PROCEDURE: Bilateral lower extremity deep vein thrombosis and venousinsufficiency study. HISTORY: Venous insufficiency. COMPARISON: None. TECHNIQUE: Grayscale, color Doppler, and spectral Doppler ultrasoundevaluation of the deep venous structures of the lower extremities.Evaluation of the greater and lesser saphenous veins was also performed toevaluate for venous insufficiency. Augmentation and compression maneuverswere performed. FINDINGS: The deep venous structures of the lower extremities demonstrate normalcompressibility with normal color and spectral Doppler flow and a normalresponse to augmentation maneuvers. The diameter of the greater saphenous vein near the saphenofemoraljunction is 5 mm on the left and 7 mm on the right. The left lesser saphenous vein was not visualized. There is no abnormalreflux with augmentation maneuvers to suggest venous valvularinsufficiency in the greater and right lesser saphenous veins. IMPRESSION: No deep venous thrombosis of either lower extremity. No evidence of venous insufficiency. -------- FINAL REPORT -------- Dictated By: Bertin Muñoz Dictated Date: 07/18/2024 10:48 ET Assigned Physician: Bertin Muñoz Reviewed and Electronically Signed By: Bertin Muñoz Signed Date: 07/18/2024 14:03 ET Workstation ID: [id number] Transcribed By: Self Edit Transcribed Date: 07/18/2024 10:48 ET Gigi Holguin MD CV VASCULAR PROCEDURES Final Re sult * Lipid panel (02/22/2024) LDL/HDL Ratio 2 0 - 4 Triglycerides 78 0 - 150 mg/dL Cholesterol 134 0 - 200 mg/dL HDL 60 >=40 mg/dL LDL Cholesterol 59 0 - 100 mg/dL Blood Venous blood specimen / Unknown Result [facility] Historical Provider LAB BLOOD ORDERABLES Talia l Result * Depression Screening (02/21/2024) Depression Screening abstracted Historical Provider HEALTH MAINTENANCE Final Result * SCREENING MAMMOGRAPHY BI 2-VIEW BREAST INC CAD (11/14/2023 4:09 PM EDT) Anatomical Region Laterality Modality Radiographic Darling ging 11/11/2022 4:20 PM EDT Narrative 11/15/2023 2:44 PM EDT This is a summary report. The complete report is available in the patient's medical record. If you cannot access the medical record, please contact the sending organization for a detailed fax or copy. Study: SCREENING MAMMOGRAPHY BI 2-VIEW BREAST INC CAD Technique: Bilateral full-field digital screening mammography is obtained and read in conjunction with computer aided detection. ??Tomosynthesis as well as 2D C-View imaging were obtained. ??Best possible images given patient's limited mobility. Comparison: November 11, 2022 Breast composition: There are scattered areas of fibroglandular density. Bilateral breasts: No significant masses, suspicious calcifications or other abnormalities are seen in either breast. IMPRESSION: Impression: Bilateral breasts: Negative, no specific mammographic evidence of malignancy. ??Normal interval follow-up is recommended in 12 months. BI-RADS: Category 1: Negative Procedure Note Lam Navarro MD - 02/29/2024 This is a summary report. The complete report is available in thepatient's medical record. If you cannot access the medical record, pleasecontact the sending organization for a detailed fax or copy. Study: SCREENING MAMMOGRAPHY BI 2-VIEW BREAST INC CAD Technique: Bilateral full-field digital screening mammography is obtainedand read in conjunction with computer aided detection. Tomosynthesis aswell as 2D C-View imaging were obtained. Best possible images givenpatient's limited mobility. Comparison: November 11, 2022 Breast composition: There are scattered areas of fibroglandular density. Bilateral breasts: No significant masses, suspicious calcifications orother abnormalities are seen in either breast. IMPRESSION: Impression: Bilateral breasts: Negative, no specific mammographic evidence ofmalignancy. Normal interval follow-up is recommended in 12 months. BI-RADS: Category 1: Negative Isabela Aguilera CNM IMG XR PROCEDURES Final Result * Cervical Cancer Screening: HPV (05/14/2021) Pathologist [facility] Cervical Cancer Screening: HPV negative, abstracted Historical Provider HEALTH MAINTENANCE Final Result from Last 3 Months or Most Recently Relevant to Health Maintenance Insurance MEDICARE MEDICAID - [place] Care Teams Line Crewman Relationship Specialty Start Date End Date Ellis Palma MD [address] [place] [id number] PCP - General Internal Medicine 06/29/21
--- OUTSIDE RECORDS SUMMARY | 2024-09-12 16:30 | XMS_ITS | Encounter Summary ---
Author Organization [facility] Address [address] [place] [address] Care Team Providers Care Business Intelligence Developer Name Role Phone Ellis Palma MD Primary Care Provider [phone] Reason for Visit * Reason Onset Date Comments faxed order 08/30/2024 [employer] Encounter Details Date Type Department Care Team ([facility] st Contact Info) Description 08/30/2024 Telephone Adult Medicine [facility] [address] [place] [address] [phone] Ellis Palma MD [address] [place] [address] faxed order ([employer]) Social History Tobacco Use Types Packs/Day Years [...] as of this encounter Progress Notes * Liliane Alvarez MA - 09/05/2024 10:26 AM EDT Faxed order needs to be corrected.Francisca Herrera the principal programmer [phone] States the orderfor the Senna needs to kept at PRN instead of 2 tabs one time each day. Also why was the Robitussinstopped? They need to keep it on site just in case the patient gets a cold. * Jazmyn Turcios - 08/30/2024 1:28 PM EDT Faxed order received from [facility] Fall Protocol please sign and fax to [phone]. documented in this encounter Plan of Treatment Upcoming Encounters Date Type Department Care Team (Late st Contact Info) Description 09/14/2024 11:00 AM EDT Treatment Outpatient Rehabilitation - [address] [phone] Kaveh Garcia, PT [address] [place] [address] 09/17/2024 9:45 AM EDT Office Visit Adult Medicine [place] - [address] [phone] Olivia Dunn, CARD HAND [address] [place], [place] 09/18/2024 9:45 AM EDT Office Visit Obstetrics and Gynecology - [address] [phone] Rylee Beth, MANOLO [address] [place], [place] 10/16/2024 10:00 AM EDT Office Visit Orthopedic Surgery - [place] [address] [phone] Dutch Schmidt, DPM [address] [address] 11/22/2024 11:20 AM EDT Appointment Radiology Department - [place] [address] [place] [address] 03/15/2025 9:00 AM EDT Office Visit Adult Medicine [facility] [address] [place] [address] Ellis Palma MD [address] [place], [place] documented as of this encounter Goals Goal Patient Goal Type Associated Problems Recent Progress Patient-Stated? Author PT LTG x 16 visits from 07/17/24 General [facility](08/2024 11:20 AM EDT) No Kaveh Garcia, PT Note: Pt will require SBA only on supine>sit Pt will require SBA on sit to stand Pt will present with > 75% of time fully clearing floor during ambulation Staff will be taught and provided exercises to perform independently with pt. documented as of this encounter Visit Diagnoses Not on filedocumented in this encounter Care Teams Business Intelligence Developer Relationship Specialty Start Date End Date Ellis Palma MD [address] [place] [address] PCP - General Internal Medicine 06/29/21 documented as of this encounter
--- OUTSIDE RECORDS SUMMARY | 2024-09-12 16:30 | XMS_ITS | Encounter Summary ---
Author Organization [facility] Address [address] [place] [address] Care Team Providers Care Principal Software Architect Name Role Phone Ellis Palma MD Primary Care Provider [phone] Reason for Visit * Reason Onset Date Comments Arm Swelling 03/28/2024 Encounter Details Date Type Department Care Team ([facility] Contact Info) Description 03/28/2024 Nurse Triage Adult Medicine [facility] [address] [place] [address] [phone] Ellis Palma MD [address] [place] [address] Arm Swelling Social History Tobacco Use Types Packs/Day Years [...] as of this encounter Progress Notes * Sera Thayer RN - 03/28/2024 1:57 PM EST Pt to go to [facility] now as no office visits available Reason for Disposition MODERATE arm swelling (e.g., puffiness or swollen feeling of entire arm) Answer Assessment - Initial Assessment Questions 1. ONSET: When did the swelling start? (e.g., minutes, hours, days) This am 2. LOCATION: What part of the arm is swollen? Are both arms swollen or just one arm? Right arm from wrist into her hand 3. SEVERITY: How bad is the swelling? (e.g., localized; mild, moderate, severe) - LOCALIZED: Small area of puffiness or swelling on just one arm - JOINT SWELLING: Swelling of one joint - MILD: Puffiness or swelling of hand - MODERATE: Puffiness or swollen feeling of entire arm - SEVERE: All of arm looks swollen; pitting edema Puffy into hand moderate 4. REDNESS: Does the swelling look red or infected? no 5. PAIN: Is the swelling painful to touch? If Yes, ask: How painful is it? (Scale 1-10; mild, moderate or severe) No pain 6. FEVER: Do you have a fever? If Yes, ask: What is it, how was it measured, and when did it start? none 7. CAUSE: What do you think is causing the arm swelling? Unknown 8. MEDICAL HISTORY: Do you have a history of heart failure, kidney disease, liver failure, or cancer? none 9. RECURRENT SYMPTOM: Have you had arm swelling before? If Yes, ask: When was the last time? What happened that time? None 10. OTHER SYMPTOMS: Do you have any other symptoms? (e.g., chest pain, difficulty breathing) No chest pain or SOB , denies any N/V/D she has no weakness or numbness , has nl CSM in her hand 11. : Is there any chance you are ? When was your last menstrual period? none Protocols used: Arm Swelling and Edema-A- * Alessio Inman - 03/28/2024 1:34 PM EST Call stating that patients right arm is swelling , has it elevated now , would like to speak to nurse on what to do , patient had covid on 03/15/24 , has a lingering cough , please advise documented in this encounter Plan of Treatment Upcoming Encounters Date Type Department Care Team (Late st Contact Info) Description 09/14/2024 11:00 AM EDT Treatment Outpatient Rehabilitation - [place] [phone] Kaveh Garcia, PT [address] [place] [address] 09/17/2024 9:45 AM EDT Office Visit Adult [address] [phone] Olivia Dunn NP [address] [place] [address] 09/18/2024 9:45 AM EDT Office Visit Obstetrics and Gynecology - [address] [phone] Rylee Beth, KATHERINE[address] 10/16/2024 10:00 AM EDT Office Visit Orthopedic Surgery - [place] [address] [phone] Dutch Schmidt, DPM [address] [address] 11/22/2024 11:20 AM EDT Appointment Radiology Department - [address] [phone] 03/15/2025 9:00 AM EDT Office Visit Adult Medicine [address] [phone] Ellis Palma MD [address] [place] [address] documented as of this encounter Visit Diagnoses Not on filedocumented in this encounter Care Teams Principal Software Architect Relationship Specialty Start Date End Date Ellis Palma MD [address] [place] [address] PCP - General Internal Medicine 06/29/21 documented as of this encounter
--- OUTSIDE RECORDS SUMMARY | 2024-09-12 16:30 | XMS_ITS | Encounter Summary ---
Author Organization [facility] Address [address] [place] [address] Care Team Providers Care Senior Business Objects Developer Name Role Phone Ellis Palma MD Primary Care Provider [phone] Reason for Visit * Reason Onset Date Comments [facility] Details Date Type Department Care Team (Late Contact Info) Description 09/07/2024 Telephone [place] [facility] [address] [place] [phone] Ellis Palma MD [address] [place], [place] [phone] faxed order ([facility]) Social History Tobacco Use Types Packs/Day Years [...] as of this encounter Progress Notes * Jazmyn Turcios - 09/07/2024 3:06 PM EDT Faxed order received from [facility] Telephone Order form/Verbal medication change form please signand fax to [phone]. documented in this encounter Plan of Treatment Upcoming Encounters Date Type Department Care Team (Late Contact Info) Description 09/14/2024 11:00 AM EDT Treatment Outpatient Rehabilitation - [address] [phone] Kaveh Garcia, PT [address] [place] [address] 09/17/2024 9:45 AM EDT Office Visit Adult Medicine [address] [phone] Olivia Dunn, REVENUE DIRECTOR [address] [place] [address] 09/18/2024 9:45 AM EDT Office Visit Obstetrics and Gynecology - [address] [phone] Rylee Beth CNM [address] [place] [address] 10/16/2024 10:00 AM EDT Office Visit Orthopedic Surgery - [place] [address] [phone] Dutch Shcmidt, DPM [address] [address] 11/22/2024 11:20 AM EDT Appointment Radiology Department - [address] [phone] 03/15/2025 9:00 AM EDT Office Visit Adult [address] [phone] Ellis Palma MD [address] [place] [address] documented as of this encounter Goals Goal [...] on filedocumented in this encounter Care Teams Senior Business Objects Developer Relationship Specialty Start Date End Date Ellis Palma MD [address] [place] [address] PCP - General Internal Medicine 06/29/21 documented as of this encounter
== END 2024-09-12 16:54 | disposition home or self-care (01) ==
PROVIDERS: Visit Provider Physician Assistant
DX: L02.612 Cutaneous abscess of left foot (principal)

== ENCOUNTER → 2024-09-12 15:41 | Outpatient (BNVA) | payer MEDICARE, MEDICAID, SELFPAY | PROVIDERS: Visit Provider Physician Assistant | DX: L02.612 Cutaneous abscess of left foot (principal) | CPT/HCPCS: 99202 ==